=== PATIENT | female | born 1960 | race Caucasian/White ===

== ENCOUNTER 2017-04-06 14:23 | Inpatient (IN) | payer MEDICARE ==
[~2017-04-06] VITALS: Ht 160 cm; Wt 108.9 kg
[2017-04-06] MEDS ORDERED: ASPIRIN ENTERIC COATED 325 MG TABLET.DR. PO ONE (14:45)
[2017-04-06 14:57] LABS: BASO # 0.1 x10^3/uL (0.0-0.2); BASO % 1 % (0-3); EOS % 3 % (0-3); HEMATOCRIT 45.4 % (36.0-47.0); HEMOGLOBIN 15.4 g/dL (12.0-15.5); LYMPH # 3.2 x10^3/uL (1.0-4.8); LYMPH % 27 % (24-48); MEAN CORPUSCULAR HEMOGLOBIN 30 pg (25-35); MEAN CORPUSCULAR HGB CONC 34 g/dL (31-37); MEAN CORPUSCULAR VOLUME 87 fL (79-100); MONO % 4 % (0-9); NEUT % 66 % (31-73); PLATELET COUNT 292 x10^3/uL (140-400); RED CELL DISTRIBUTION WIDTH 14.1 % (11.5-14.5); WHITE BLOOD COUNT 11.9 x10^3/uL (4.0-11.0)
[2017-04-06] MEDS: NITROGLYCERIN SUBLINGUAL 0.4 MG BOTTLE OF 25. SL PRN ×3 (15:01→15:15)
[2017-04-06 15:06] LABS: PROTHROMBIN TIME PATIENT 12.9 SEC (11.7-14.0)
--- NOTE | 2017-04-06 15:11 | RAD ---
Portable chest, 04/06/2017: History: Chest pain The heart size and pulmonary vascularity are normal. No pulmonary infiltrates are seen. There is no evidence of pleural fluid. Scattered spurs are present in the spine. IMPRESSION: No acute cardiopulmonary abnormality is detected.
[2017-04-06 15:13] LABS: BILIRUBIN,URINE NEGATIVE (NEG); GLUCOSE,URINE NEGATIVE (NEG); NITRITE,URINE NEGATIVE (NEG); PROTEIN,URINE NEGATIVE (NEG-TRACE); UROBILINOGEN,URINE 0.2 mg/dL (0.2 mg/dL)
[2017-04-06] MEDS ORDERED: fentaNYL PF VIAL 100 MCG/2 ML VIAL IV ONE (15:15)
--- NOTE | 2017-04-06 15:16 | EKG ---
[facility] [address] [place] [address] Test Date: 2017-04-06 Test Time: 14:30:57 Pat Name: DANII NUR Department: Room: Gender: F Freight Dispatcher: : 1960 Requested By: GARY SLAUGHTER Order Number: [id number] Reading MD: Eyal Cuba Measurements Intervals [place] Rate: 89 P: -32 AL: 180 QRS: 66 QRSD: 76 T: 75 QT: 350 QTc: 427 Interpretive Statements SINUS RHYTHM Electronically Signed On 04-27-2017 16:42:12 CDT by Eyal Cuba
[2017-04-06 15:18] LABS: CALCIUM 9.9 mg/dL (8.5-10.1); CREATININE 0.7 mg/dL (0.6-1.0); GFR 86.9; POTASSIUM 4.6 mmol/L (3.5-5.1)
[2017-04-06 15:18] LABS: BARBITURATES NEG (NEG); BENZODIAZEPINES NEG (NEG); CANNABINOIDS NEG (NEG); COCAINE NEG (NEG); METHADONE NEG (NEG); OPIATES POS (NEG); PHENCYCLIDINE NEG (NEG)
[2017-04-06 15:24] LABS: ALBUMIN 4.2 g/dL (3.4-5.0); ALBUMIN/GLOBULIN RATIO 0.9 (1.0-1.7); TOTAL BILIRUBIN 0.6 mg/dL (0.2-1.0); TOTAL PROTEIN 9.1 g/dL (6.4-8.2)
--- NOTE | 2017-04-06 15:24 | PHYS DOC ---
Past Medical History Past Medical History: Anxiety, Asthma, Bronchitis, Diabetes-Type II, Fibromyalgia Past Surgical History: Cholecystectomy, , Hysterectomy Additional Past Surgical Histo: heart cath 15 yrs ago, hernia repair. Alcohol Use: Occasionally Drug Use: None Adult General Chief Complaint Chief Complaint: CHEST PAIN HPI HPI Patient is a 57 year old female presenting to the emergency department for evaluation of chest pain that has been going on for the past 3 days but is worse today. She says it feels as if there is a pressure in the left clavicle and shoulder area with radiation towards the jaw. She was supposed to go to the dentist today and took a Xanax and now she is somewhat sedated with slurred speech but says that she is having severe pain. Says that she has nausea with no vomiting diaphoresis or shortness of breath with the pain. She says that she had a heart catheterization 15 years ago but no cardiac risk stratification since that time. 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 Patient says that she has high cholesterol but has never been diagnosed with hypertension but her blood pressure is quite elevated today. She is nontoxic-appearing in no obvious distress. Review of Systems Review of Systems Constitutional: Denies fever or chills [] Eyes: Denies change in visual acuity, redness, or eye pain [] HENT: Denies nasal congestion or sore throat [] Respiratory: Denies cough or shortness of breath [] Cardiovascular: + CP GI: Denies abdominal pain. + nausea. No vomiting, bloody stools or diarrhea [] : Denies dysuria or hematuria [] Musculoskeletal: Denies back pain or joint pain [] Integument: Denies rash or skin lesions [] Neurologic: Denies headache, focal weakness or sensory changes [] Current Medications Current Medications Current Medications Medications (Trade) Dose Ordered Sig/Hanane Start Time Stop Time Status Last Admin Dose Admin Aspirin (Ecotrin) 325 mg 1X ONCE 04/06/17 14:45 04/06/17 14:57 DC 04/06/17 15:02 325 MG Fentanyl Citrate (Fentanyl 2ml Vial) 75 mcg 1X ONCE 04/06/17 15:15 04/06/17 15:28 DC 04/06/17 15:37 75 MCG Nitroglycerin (Nitrostat) 0.4 mg PRN Q5MIN PRN 04/06/17 14:45 04/06/17 15:15 0.4 MG Allergies Allergies Allergies Coded Allergies Type Severity Reaction Last Updated Verified morphine Adverse Reaction Unknown pressure from toes up 04/06/17 Yes Physical Exam Physical Exam Constitutional: Well developed, well nourished, no acute distress, non-toxic appearance. [] HENT: Normocephalic, atraumatic, bilateral external ears normal, oropharynx moist, no oral exudates, nose normal. [] Eyes: PERRLA, EOMI, conjunctiva normal, no discharge. [] Neck: Normal range of motion, no tenderness, supple, no stridor. [] Cardiovascular:Heart rate regular rhythm, no murmur [] Lungs & Thorax: Bilateral breath sounds clear to auscultation [] Abdomen: Bowel sounds normal, soft, no tenderness, no masses, no pulsatile masses. [] Skin: Warm, dry, no erythema, no rash. [] Back: No tenderness, no CVA tenderness. [] Extremities: No tenderness, no cyanosis, no clubbing, ROM intact, no edema. [] Neurologic: Alert and oriented X 3, normal motor function, normal sensory function, no focal deficits noted. [] Psychologic: Affect normal, judgement normal, mood normal. [] Current Patient Data Vital Signs Vital Signs Date Time Temp Pulse Resp B/P (MAP) Pulse Ox O2 Delivery O2 Flow Rate FiO2 04/06/17 15:15 87 176/94 04/06/17 14:30 98.4 22 98 Room Air 98.4 Lab Values Laboratory Tests Test 04/06/17 14:35 04/06/17 15:00 White Blood Count 11.9 x10^3/uL (4.0-11.0) H Red Blood Count 5.20 x10^6/uL (3.50-5.40) Hemoglobin 15.4 g/dL (12.0-15.5) Hematocrit 45.4 % (36.0-47.0) Mean Corpuscular Volume 87 fL (79-100) Mean Corpuscular Hemoglobin 30 pg (25-35) Mean Corpuscular Hemoglobin Concent 34 g/dL (31-37) Red Cell Distribution Width 14.1 % (11.5-14.5) Platelet Count 292 x10^3/uL (140-400) Neutrophils (%) (Auto) 66 % (31-73) Lymphocytes (%) (Auto) 27 % (24-48) Monocytes (%) (Auto) 4 % (0-9) Eosinophils (%) (Auto) 3 % (0-3) Basophils (%) (Auto) 1 % (0-3) Neutrophils # (Auto) 7.8 x10^3uL (1.8-7.7) H Lymphocytes # (Auto) 3.2 x10^3/uL (1.0-4.8) Monocytes # (Auto) 0.5 x10^3/uL (0.0-1.1) Eosinophils # (Auto) 0.3 x10^3/uL (0.0-0.7) Basophils # (Auto) 0.1 x10^3/uL (0.0-0.2) Prothrombin Time 12.9 SEC (11.7-14.0) Prothrombin Time INR 1.0 (0.8-1.1) PTT 30 SEC (24-38) Sodium Level 139 mmol/L (136-145) Potassium Level 4.6 mmol/L (3.5-5.1) Chloride Level 103 mmol/L (98-107) Carbon Dioxide Level 32 mmol/L (21-32) Anion Gap 4 (6-14) L Blood Urea Nitrogen 13 mg/dL (7-20) Creatinine 0.7 mg/dL (0.6-1.0) Estimated GFR (Cockcroft-Gault) 86.9 BUN/Creatinine Ratio 19 (6-20) Glucose Level 87 mg/dL (70-99) Calcium Level 9.9 mg/dL (8.5-10.1) Magnesium Level 2.0 mg/dL (1.8-2.4) Total Bilirubin 0.6 mg/dL (0.2-1.0) Aspartate Amino Transferase (AST) 29 U/L (15-37) Alanine Aminotransferase (ALT) 43 U/L (14-59) Alkaline Phosphatase 88 U/L (46-116) Troponin I Quantitative < 0.017 ng/mL (0.000-0.055) EK-Asx-T-Type Natriuretic Peptide 86 pg/mL (0-124) Total Protein 9.1 g/dL (6.4-8.2) H Albumin 4.2 g/dL (3.4-5.0) Albumin/Globulin Ratio 0.9 (1.0-1.7) L Lipase 219 U/L (73-393) Ethyl Alcohol Level < 10 mg/dL (0-10) Urine Collection Type Unknown Urine Color Yellow Urine Clarity Clear Urine pH 6.0 Urine Specific [place] 1.010 Urine Protein Negative mg/dL (NEG-TRACE) Urine Glucose (UA) Negative mg/dL (NEG) Urine Ketones (Stick) Negative mg/dL (NEG) Urine Blood Negative (NEG) Urine Nitrite Negative (NEG) Urine Bilirubin Negative (NEG) Urine Urobilinogen Dipstick 0.2 mg/dL (0.2 mg/dL) Urine Leukocyte Esterase Negative (NEG) Urine RBC 0 /HPF (0-2) Urine WBC Rare /HPF (0-4) Urine Squamous Epithelial Cells Mod /LPF Urine Bacteria Moderate /HPF (0-FEW) Urine Mucus Slight /LPF Urine Opiates Screen Pos (NEG) Urine Methadone Screen Neg (NEG) Urine Barbiturates Neg (NEG) Urine Phencyclidine Screen Neg (NEG) Urine Amphetamine/Methamphetamine Neg (NEG) Urine Benzodiazepines Screen Neg (NEG) Urine Cocaine Screen Neg (NEG) Urine Cannabinoids Screen Neg (NEG) Urine Ethyl Alcohol Neg (NEG) Laboratory Tests 04/06/17 14:35 Laboratory Tests 04/06/17 14:35 EKG EKG Sinus rhythm at 89 beats per minutes with normal axis no obvious ST elevation or depression with normal T waves. Radiology/Procedures Radiology/Procedures Portable chest, 04/06/2017: History: Chest pain The heart size and pulmonary vascularity are normal. No pulmonary infiltrates are seen. There is no evidence of pleural fluid. Scattered spurs are present in the spine. IMPRESSION: No acute cardiopulmonary abnormality is detected. DICTATED and SIGNED BY: MARIAH MCDONALD MD DATE: 04/06/17 1508 Course & Med Decision Making Course & Med Decision Making Patient's pain resolved after 3 nitroglycerin and her blood pressure improved to the 140s systolic range. This is concerning for cardiac etiology given she has risk factors and some classic components to her symptoms. She will be admitted for further observation and treatment. Dragon Disclaimer Dragon Disclaimer This electronic medical record was generated, in whole or in part, using a voice recognition dictation system. Departure Departure Impression: Primary Impression: Chest pain at rest Additional Impression: Hypertensive urgency Disposition: 09 ADMITTED INPATIENT Admitting Physician: Wale Lao Condition: STABLE Referrals: MEG MARTINEZ DO (PCP) Problem Qualifiers GARY SLAUGHTER DO Apr 06, 2017 15:24
[2017-04-06 15:26] LABS: BACTERIA,URINE MODERATE /HPF (0-FEW); RBC,URINE 0 /HPF (0-2); SQUAMOUS EPITHELIAL CELL,UR MOD /LPF; WBC,URINE RARE /HPF (0-4)
[2017-04-06] MEDS ORDERED: ONDANSETRON PF 4 MG/2 ML VIAL. IV PRN (16:15)
[2017-04-06] MEDS: fentaNYL PF VIAL 100 MCG/2 ML VIAL IV PRN (17:23)
[2017-04-06 18:42] VITALS: BP 189/97
--- NOTE | 2017-04-06 18:45 | HP ---
ADMIT DATE: 04/06/2017 CHIEF COMPLAINT: Chest pain. HISTORY OF PRESENT ILLNESS: The patient is a pleasant 57-year-old female who presents with chest pain. She has diabetes. She has high blood pressure. She smokes. It is in her family as well. I have discussed the case with ER physician. We are going to admit the patient and consult Cardiology. The patient describes her pain is burning. It is rated at 10/10. PAST MEDICAL HISTORY: Anxiety, fibromyalgia, asthma, bronchitis, diabetes, overweight, , hysterectomy, cholecystectomy, cardiac cath 15 years ago, hernia repair. ALLERGIES: MORPHINE. FAMILY HISTORY: Coronary artery disease. SOCIAL HISTORY: She smokes. She drinks socially. No drugs. MEDICATIONS: Reviewed. REVIEW OF SYSTEMS: GENERAL: No history of weight change, weakness or fevers. SKIN: No bruising, hair changes or rashes. EYES: No blurred, double or loss of vision. NOSE AND THROAT: No history of nosebleeds, hoarseness or sore throat. HEART: She complains of chest pain. LUNGS: Denies cough, hemoptysis, wheezing or shortness of breath. GASTROINTESTINAL: Denies changes in appetite, nausea, vomiting, diarrhea or constipation. GENITOURINARY: No history of frequency, urgency, hesitancy or nocturia. NEUROLOGIC: Denies history of numbness, tingling, tremor or weakness. PSYCHIATRIC: No history of panic, anxiety or depression. ENDOCRINE: No history of heat or cold intolerance, polyuria or polydipsia. EXTREMITIES: Denies muscle weakness, joint pain, pain on walking or stiffness. PHYSICAL EXAMINATION: VITAL SIGNS: Temperature afebrile, pulse 90, respirations 18, blood pressure 136/75. GASTROINTESTINAL: She is alert, cooperative. Her is present. HEART: Normal S1, S2. LUNGS: Clear. ABDOMEN: Soft, obese. EXTREMITIES: 1+ edema. SKIN: No rashes. PSYCHIATRIC: She is anxious. VASCULAR: Good capillary refill. ENDOCRINE: No thyromegaly. LYMPHATICS: No cervical nodes. HEMATOPOIETIC: No bruising. LABORATORY DATA: Electrolytes are normal. Troponin is 0. Hematology: White count 12, hemoglobin 15, platelets 292. INR is 1. Drug screen positive for opiates. Urinalysis negative. ASSESSMENT AND PLAN: Chest pain, rule out coronary disease. The patient has been admitted. We will check serial enzymes, serial EKGs. Consult Cardiology, cardiac monitoring. Daily aspirin. Continue home medicines. J CARLOS GUALLPA DO DR: JOSEPHINE/uziel JOB#: [id number] / [id number]
[2017-04-06 19:15] VITALS: BP 172/94
[2017-04-06] MEDS ORDERED: CLON1TAB3 PO (19:45)
[2017-04-06] MEDS ORDERED: GABA-587 PO (19:45)
[2017-04-06] MEDS ORDERED: PROAIR HFA8.5 GM INH (19:45)
[2017-04-06] MEDS ORDERED: METF500T4 PO (19:45)
[2017-04-06] MEDS ORDERED: PARO30TA3 PO (19:45)
[2017-04-06] MEDS ORDERED: BENZ200C47 PO (19:45)
[2017-04-06] MEDS ORDERED: HYDR-2762 PO (19:45)
[2017-04-06] MEDS ORDERED: GABA-586 PO (19:45)
[2017-04-06] MEDS ORDERED: ALPR0.5T6 PO (19:45)
[2017-04-06] MEDS ORDERED: NON FORMULARY ITEM (Albuterol Sulfate (Proair Hfa Inhaler) 1 PUFF) INH PRN (20:00)
[2017-04-06] MEDS ORDERED: ALBUTEROL SULFATE 2.5 MG/3 ML NEBU. NEB PRN (20:00)
[2017-04-06] MEDS ORDERED: ALPRAZolam 0.5 MG TABLET PO PRN (20:00)
[2017-04-06] MEDS: NICOTINE 21MG PATCH. TD PRN (20:04)
[2017-04-06] MEDS: HYDROcodone/APAP 7.5/325MG 1 TAB TABLET PO PRN (20:04)
[2017-04-06] MEDS: BENZONATATE 100 MG CAPSULE. PO SCH (20:58)
[2017-04-06] MEDS: PARoxetine 10 MG TABLET PO SCH (20:59)
[2017-04-06] MEDS: GABAPENTIN 400 MG CAPSULE. PO SCH (20:59)
[2017-04-06] MEDS: clonazePAM 1 MG TABLET PO PRN (21:04)
[2017-04-06 23:10] VITALS: BP 179/87
[2017-04-06] MEDS ORDERED: amLODIPine BESYLATE 5 MG TABLET PO ONE (23:45)
[2017-04-07] VITALS (7 sets, daily range): BP systolic 135–206; BP diastolic 70–101
[2017-04-07] MEDS ORDERED: LABETALOL 20 MG/4 ML DISP.SYRIN. IVP PRN (04:15)
[2017-04-07] MEDS: HYDROcodone/APAP 7.5/325MG 1 TAB TABLET PO PRN ×2 (05:16→18:26)
[2017-04-07 06:15] LABS: CALCIUM 9.6 mg/dL (8.5-10.1); CREATININE 0.5 mg/dL (0.6-1.0); GFR 128.1; POTASSIUM 4.6 mmol/L (3.5-5.1)
[2017-04-07 06:17] LABS: BASO # 0.1 x10^3/uL (0.0-0.2); BASO % 1 % (0-3); EOS % 3 % (0-3); HEMATOCRIT 44.6 % (36.0-47.0); HEMOGLOBIN 14.8 g/dL (12.0-15.5); LYMPH # 2.9 x10^3/uL (1.0-4.8); LYMPH % 26 % (24-48); MEAN CORPUSCULAR HEMOGLOBIN 29 pg (25-35); MEAN CORPUSCULAR HGB CONC 33 g/dL (31-37); MEAN CORPUSCULAR VOLUME 87 fL (79-100); MONO % 4 % (0-9); NEUT % 68 % (31-73); PLATELET COUNT 290 x10^3/uL (140-400); RED BLOOD COUNT 5.11 x10^6/uL (3.50-5.40); RED CELL DISTRIBUTION WIDTH 14.1 % (11.5-14.5); WHITE BLOOD COUNT 11.5 x10^3/uL (4.0-11.0)
[2017-04-07] MEDS ORDERED: ACETAMINOPHEN 500 MG TABLET PO PRN (08:30)
[2017-04-07] MEDS: GABAPENTIN 300 MG CAPSULE. PO SCH (08:36)
[2017-04-07] MEDS ORDERED: ONDANSETRON PF 4 MG/2 ML VIAL. IV PRN (08:45)
[2017-04-07] MEDS ORDERED: amLODIPine BESYLATE 5 MG TABLET PO SCH (09:00)
--- NOTE | 2017-04-07 09:37 | PDOC2 ---
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 Pt was recently seen by her PCP noted with URI and was provided with symptom controlling meds such as mucinex and was also given rocephin at that time. At that time her SBP was 178. She went to the dentist yesterday to get her left lower wisdom tooth out due to impaction but no absccess and her BP was 203/119 and this was cancelled and was advised to see her PCP. She then decided to go to ED since she figured her PCP wont be abler to do something. She typically walks her horse with up and down terrain almost everyday but Tuesday, she did this only partially since she felt weak, slightly SOA, flushed, and clammy. Last night for the first time she started having chest pain left and right chest and also left shoulder. Her left shoulder discomfort is reproducible with palpation and she blames her left jaw pain from her wisdom tooth. This AM positive for nausea. She had LHC 15 yrs ago and this was normal accdg to her. She is positive for DM2, no HLP, and newly diagnosed with HTN but no medication has been started. It is unclear if she follows DM diet but she has not lost any weight and also continue to smoke tobacco. Denies CAD, VTE, falls or any recent injury. PAST MEDICAL HISTORY Cardiovascular: HTN Pulmonary: Other (ALEE) CENTRAL NERVOUS SYSTEM: Periperal neuropathy GI: GERD Heme/Onc: No pertinent hx Hepatobiliary: No pertinent hx Psych: Anxiety, Depression Musculoskeletal: low back pain, Osteoarthritis, Other (obesity) Rheumatologic: Fibromyalgia Infectious disease: No pertinent hx ENT: Allergic Rhinitis Renal/: UTI Endocrine: Diabetes (2) Dermatology: Other (dermatitis) PAST SURGICAL HISTORY Past Surgical History: Cholecystectomy, , Hernia Repair, Hysterectomy , Other (LHC 15 yrs ago) FAMILY HISTORY Family History: Coronary Artery Disease (father ) SOCIAL HISTORY Smoke: <1 pack per day (>30 yrs) ALCOHOL: occassional Drugs: None Lives: with Family CURRENT MEDICATIONS CURRENT MEDICATIONS Current Medications Medications (Trade) Dose Ordered Sig/Hanane Route PRN Reason Start Time Stop Time Status Last Admin Dose Admin Aspirin (Ecotrin) 325 mg 1X ONCE PO 04/06/17 14:45 04/06/17 14:57 DC 04/06/17 15:02 Nitroglycerin (Nitrostat) 0.4 mg PRN Q5MIN PRN SL CHEST PAIN 04/06/17 14:45 04/06/17 15:15 Fentanyl Citrate (Fentanyl 2ml Vial) 75 mcg 1X ONCE IV 04/06/17 15:15 04/06/17 15:28 DC 04/06/17 15:37 Fentanyl Citrate (Fentanyl 2ml Vial) 50 mcg PRN Q2HR PRN IV PAIN 04/06/17 16:15 04/07/17 16:14 04/06/17 17:23 Nicotine (Nicoderm Cq 21mg) 1 patch PRN DAILY PRN TD SMOKING CESSATION 04/06/17 19:45 04/06/17 20:04 Clonazepam (KlonoPIN) 1 mg TID PRN PRN PO ANXIETY / AGITATION 04/06/17 20:00 04/06/17 21:04 Acetaminophen/ Hydrocodone Bitart (Lortab 7.5/325) 1 tab TID PRN PRN PO PAIN 04/06/17 20:00 04/07/17 05:16 Benzonatate (Tessalon Perle) 200 mg QHS PO 04/06/17 21:00 04/06/17 20:58 Gabapentin (Neurontin) 300 mg DAILY PO 04/07/17 09:00 04/07/17 08:36 Gabapentin (Neurontin) 1,200 mg QHS PO 04/06/17 21:00 04/06/17 20:59 Paroxetine HCl (Paxil) 30 mg QHS PO 04/06/17 21:00 04/06/17 20:59 Albuterol Sulfate (Ventolin Neb Soln) 2.5 mg PRN Q6HRS PRN NEB SHORTNESS OF BREATH 04/06/17 20:00 04/07/17 07:53 Amlodipine Besylate (Norvasc) 5 mg DAILY PO 04/07/17 09:00 04/07/17 08:36 Amlodipine Besylate (Norvasc) 5 mg 1X ONCE PO 04/06/17 23:45 04/06/17 23:46 DC 04/06/17 23:47 Labetalol HCl (Normodyne) 20 mg PRN Q6HRS PRN IVP HYPERTENSION, SEE COMMENTS 04/07/17 04:15 04/07/17 05:16 Ondansetron HCl (Zofran) 4 mg PRN Q6HRS PRN IV NAUSEA/VOMITING 04/07/17 08:45 04/08/17 08:44 04/07/17 08:47 Acetaminophen (Tylenol) 500 mg PRN Q6HRS PRN PO MILD PAIN / TEMP 04/07/17 08:30 04/07/17 08:38 ALLERGIES ALLERGIES: Coded Allergies: morphine (Verified Adverse Reaction, Unknown, pressure from toes up, ) ROS Review of System 14 point ROS evaluated with pertinent positives noted per HPI PHYSICAL EXAM General: Alert, Oriented X3, Cooperative, No acute distress HEENT: Atraumatic, Mucous membr. moist/pink Lungs: Clear to auscultation, Normal air movement Heart: Regular rate, Normal S1, Normal S2, Other (2/6 systolic murmur to LLS border) Abdomen: Soft, No tenderness Skin: No breakdown, Other (allergic dermatitis to bilateral forearm) Neuro: Normal speech, Sensation intact Psych/Mental Status: Mental status NL, Mood NL MUSCULOSKELETAL: Osteoarthritic changes both hands VITALS VITALS Vital Signs Date Time Temp Pulse Resp B/P (MAP) Pulse Ox O2 Delivery O2 Flow Rate FiO2 04/07/17 08:43 98.6 73 20 157/84 (108) 93 Room Air 98.6 LABS Lab: Laboratory Tests Test 04/06/17 14:35 04/06/17 15:00 04/06/17 21:50 04/07/17 05:20 White Blood Count 11.9 x10^3/uL (4.0-11.0) 11.5 x10^3/uL (4.0-11.0) Red Blood Count 5.20 x10^6/uL (3.50-5.40) 5.11 x10^6/uL (3.50-5.40) Hemoglobin 15.4 g/dL (12.0-15.5) 14.8 g/dL (12.0-15.5) Hematocrit 45.4 % (36.0-47.0) 44.6 % (36.0-47.0) Mean Corpuscular Volume 87 fL (79-100) 87 fL (79-100) Mean Corpuscular Hemoglobin 30 pg (25-35) 29 pg (25-35) Mean Corpuscular Hemoglobin Concent 34 g/dL (31-37) 33 g/dL (31-37) Red Cell Distribution Width 14.1 % (11.5-14.5) 14.1 % (11.5-14.5) Platelet Count 292 x10^3/uL (140-400) 290 x10^3/uL (140-400) Neutrophils (%) (Auto) 66 % (31-73) 68 % (31-73) Lymphocytes (%) (Auto) 27 % (24-48) 26 % (24-48) Monocytes (%) (Auto) 4 % (0-9) 4 % (0-9) Eosinophils (%) (Auto) 3 % (0-3) 3 % (0-3) Basophils (%) (Auto) 1 % (0-3) 1 % (0-3) Neutrophils # (Auto) 7.8 x10^3uL (1.8-7.7) 7.8 x10^3uL (1.8-7.7) Lymphocytes # (Auto) 3.2 x10^3/uL (1.0-4.8) 2.9 x10^3/uL (1.0-4.8) Monocytes # (Auto) 0.5 x10^3/uL (0.0-1.1) 0.4 x10^3/uL (0.0-1.1) Eosinophils # (Auto) 0.3 x10^3/uL (0.0-0.7) 0.3 x10^3/uL (0.0-0.7) Basophils # (Auto) 0.1 x10^3/uL (0.0-0.2) 0.1 x10^3/uL (0.0-0.2) Prothrombin Time 12.9 SEC (11.7-14.0) Prothromb Time International Ratio 1.0 (0.8-1.1) Activated Partial Thromboplast Time 30 SEC (24-38) Sodium Level 139 mmol/L (136-145) 138 mmol/L (136-145) Potassium Level 4.6 mmol/L (3.5-5.1) 4.6 mmol/L (3.5-5.1) Chloride Level 103 mmol/L (98-107) 101 mmol/L (98-107) Carbon Dioxide Level 32 mmol/L (21-32) 31 mmol/L (21-32) Anion Gap 4 (6-14) 6 (6-14) Blood Urea Nitrogen 13 mg/dL (7-20) 11 mg/dL (7-20) Creatinine 0.7 mg/dL (0.6-1.0) 0.5 mg/dL (0.6-1.0) Estimated GFR (Cockcroft-Gault) 86.9 128.1 BUN/Creatinine Ratio 19 (6-20) Glucose Level 87 mg/dL (70-99) 116 mg/dL (70-99) Calcium Level 9.9 mg/dL (8.5-10.1) 9.6 mg/dL (8.5-10.1) Magnesium Level 2.0 mg/dL (1.8-2.4) Total Bilirubin 0.6 mg/dL (0.2-1.0) Aspartate Amino Transf (AST/SGOT) 29 U/L (15-37) Alanine Aminotransferase (ALT/SGPT) 43 U/L (14-59) Alkaline Phosphatase 88 U/L (46-116) Troponin I Quantitative < 0.017 ng/mL (0.000-0.055) < 0.017 ng/mL (0.000-0.055) < 0.017 ng/mL (0.000-0.055) CL-Svv-C-Type Natriuretic Peptide 86 pg/mL (0-124) Total Protein 9.1 g/dL (6.4-8.2) Albumin 4.2 g/dL (3.4-5.0) Albumin/Globulin Ratio 0.9 (1.0-1.7) Lipase 219 U/L (73-393) Ethyl Alcohol Level < 10 mg/dL (0-10) Urine Collection Type Unknown Urine Color Yellow Urine Clarity Clear Urine pH 6.0 Urine Specific [place] 1.010 Urine Protein Negative mg/dL (NEG-TRACE) Urine Glucose (UA) Negative mg/dL (NEG) Urine Ketones (Stick) Negative mg/dL (NEG) Urine Blood Negative (NEG) Urine Nitrite Negative (NEG) Urine Bilirubin Negative (NEG) Urine Urobilinogen Dipstick 0.2 mg/dL (0.2 mg/dL) Urine Leukocyte Esterase Negative (NEG) Urine RBC 0 /HPF (0-2) Urine WBC Rare /HPF (0-4) Urine Squamous Epithelial Cells Mod /LPF Urine Bacteria Moderate /HPF (0-FEW) Urine Mucus Slight /LPF Urine Opiates Screen Pos (NEG) Urine Methadone Screen Neg (NEG) Urine Barbiturates Neg (NEG) Urine Phencyclidine Screen Neg (NEG) Urine Amphetamine/Methamphetamine Neg (NEG) Urine Benzodiazepines Screen Neg (NEG) Urine Cocaine Screen Neg (NEG) Urine Cannabinoids Screen Neg (NEG) Urine Ethyl Alcohol Neg (NEG) ASSESSMENT/PLAN ASSESSMENT/PLAN 1. Chest pain: mixed features 2. Accelerated HTN: New. was noted initially at PCPs office on 03/29/2017 at 178 /87. was not placed on regimen at that time 3. DM2: last A1C 7.0 4. Morbid obesity: BMI 42 5. Tobaccoism 6. Hx of fibromyalgia/anxiety/depression with chronic use of opioids 7. ALEE: CPAP compliant Recommendations 1. TTEand MPI today 2. TSH, lipid panel 3. Start on losartan/HCTZ. Start ECASA. 4. Smoking cessation. Lifestyle modifications. 5. Dietitian, encouraged wt loss. Problems: ZHEN GALEANA MD 04/07/17 1143: CARDIAC CONSULT ALLERGIES ALLERGIES: Coded Allergies: morphine (Verified Adverse Reaction, Unknown, pressure from toes up, ) ASSESSMENT/PLAN ASSESSMENT/PLAN Pt. seen and examined. Agree with above DATABASE SPECIALIST note. Await results from stress testing. Atypical chest pain with risk factors, appropriate for non-invasive evaluation. Problems: HECTOR CONN APRN Apr 07, 2017 09:37 ZHEN GALEANA MD Apr 07, 2017 11:43
[2017-04-07] MEDS ORDERED: REGADENOSON 0.4 MG/5 ML DISP.SYRIN. IV ONE (09:45)
[2017-04-07] MEDS: ASPIRIN ENTERIC COATED 81 MG TABLET.DR. PO SCH (11:11)
[2017-04-07] MEDS: hydroCHLOROthiazide 25 MG TABLET PO SCH (11:12)
[2017-04-07] MEDS: LOSARTAN POTASSIUM 50 MG TABLET. PO SCH (11:12)
[2017-04-07] MEDS: fentaNYL PF VIAL 100 MCG/2 ML VIAL IV PRN (11:21)
--- NOTE | 2017-04-07 11:27 | PDOC ---
PROGRESS NOTES Chief Complaint Chief Complaint 1. CP 2. HTN, dyslipidemia, fibromyalgia - chronic stable 3. Obesity BMI 42 4. DM 2 on OHA History of Present Illness History of Present Illness Headaches now Trying to eat after first part MPI VS ok LAbs ok PLAn: Toradol 30 IV x 1 now Then prn ibuprofen SSi high dose - metformin on hold since [employer] and mPI Dw RN Aditi Vitals Vitals Vital Signs Date Time Temp Pulse Resp B/P (MAP) Pulse Ox O2 Delivery O2 Flow Rate FiO2 04/07/17 11:21 98.4 79 21 177/95 (122) 94 Room Air 98.4 Physical Exam General: Alert, Oriented X3, Cooperative, No acute distress Heart: Regular rate, Normal S1, Normal S2, Other (2/6 systolic murmur to LLS border) Abdomen: Soft, No tenderness Skin: No breakdown, Other (allergic dermatitis to bilateral forearm) Labs LABS Laboratory Tests Test 04/06/17 14:35 04/06/17 15:00 04/06/17 21:50 04/07/17 05:20 White Blood Count 11.9 x10^3/uL (4.0-11.0) 11.5 x10^3/uL (4.0-11.0) Red Blood Count 5.20 x10^6/uL (3.50-5.40) 5.11 x10^6/uL (3.50-5.40) Hemoglobin 15.4 g/dL (12.0-15.5) 14.8 g/dL (12.0-15.5) Hematocrit 45.4 % (36.0-47.0) 44.6 % (36.0-47.0) Mean Corpuscular Volume 87 fL (79-100) 87 fL (79-100) Mean Corpuscular Hemoglobin 30 pg (25-35) 29 pg (25-35) Mean Corpuscular Hemoglobin Concent 34 g/dL (31-37) 33 g/dL (31-37) Red Cell Distribution Width 14.1 % (11.5-14.5) 14.1 % (11.5-14.5) Platelet Count 292 x10^3/uL (140-400) 290 x10^3/uL (140-400) Neutrophils (%) (Auto) 66 % (31-73) 68 % (31-73) Lymphocytes (%) (Auto) 27 % (24-48) 26 % (24-48) Monocytes (%) (Auto) 4 % (0-9) 4 % (0-9) Eosinophils (%) (Auto) 3 % (0-3) 3 % (0-3) Basophils (%) (Auto) 1 % (0-3) 1 % (0-3) Neutrophils # (Auto) 7.8 x10^3uL (1.8-7.7) 7.8 x10^3uL (1.8-7.7) Lymphocytes # (Auto) 3.2 x10^3/uL (1.0-4.8) 2.9 x10^3/uL (1.0-4.8) Monocytes # (Auto) 0.5 x10^3/uL (0.0-1.1) 0.4 x10^3/uL (0.0-1.1) Eosinophils # (Auto) 0.3 x10^3/uL (0.0-0.7) 0.3 x10^3/uL (0.0-0.7) Basophils # (Auto) 0.1 x10^3/uL (0.0-0.2) 0.1 x10^3/uL (0.0-0.2) Prothrombin Time 12.9 SEC (11.7-14.0) Prothromb Time International Ratio 1.0 (0.8-1.1) Activated Partial Thromboplast Time 30 SEC (24-38) Sodium Level 139 mmol/L (136-145) 138 mmol/L (136-145) Potassium Level 4.6 mmol/L (3.5-5.1) 4.6 mmol/L (3.5-5.1) Chloride Level 103 mmol/L (98-107) 101 mmol/L (98-107) Carbon Dioxide Level 32 mmol/L (21-32) 31 mmol/L (21-32) Anion Gap 4 (6-14) 6 (6-14) Blood Urea Nitrogen 13 mg/dL (7-20) 11 mg/dL (7-20) Creatinine 0.7 mg/dL (0.6-1.0) 0.5 mg/dL (0.6-1.0) Estimated GFR (Cockcroft-Gault) 86.9 128.1 BUN/Creatinine Ratio 19 (6-20) Glucose Level 87 mg/dL (70-99) 116 mg/dL (70-99) Calcium Level 9.9 mg/dL (8.5-10.1) 9.6 mg/dL (8.5-10.1) Magnesium Level 2.0 mg/dL (1.8-2.4) Total Bilirubin 0.6 mg/dL (0.2-1.0) Aspartate Amino Transf (AST/SGOT) 29 U/L (15-37) Alanine Aminotransferase (ALT/SGPT) 43 U/L (14-59) Alkaline Phosphatase 88 U/L (46-116) Troponin I Quantitative < 0.017 ng/mL (0.000-0.055) < 0.017 ng/mL (0.000-0.055) < 0.017 ng/mL (0.000-0.055) QR-Zet-G-Type Natriuretic Peptide 86 pg/mL (0-124) Total Protein 9.1 g/dL (6.4-8.2) Albumin 4.2 g/dL (3.4-5.0) Albumin/Globulin Ratio 0.9 (1.0-1.7) Lipase 219 U/L (73-393) Ethyl Alcohol Level < 10 mg/dL (0-10) Urine Collection Type Unknown Urine Color Yellow Urine Clarity Clear Urine pH 6.0 Urine Specific Luke 1.010 Urine Protein Negative mg/dL (NEG-TRACE) Urine Glucose (UA) Negative mg/dL (NEG) Urine Ketones (Stick) Negative mg/dL (NEG) Urine Blood Negative (NEG) Urine Nitrite Negative (NEG) Urine Bilirubin Negative (NEG) Urine Urobilinogen Dipstick 0.2 mg/dL (0.2 mg/dL) Urine Leukocyte Esterase Negative (NEG) Urine RBC 0 /HPF (0-2) Urine WBC Rare /HPF (0-4) Urine Squamous Epithelial Cells Mod /LPF Urine Bacteria Moderate /HPF (0-FEW) Urine Mucus Slight /LPF Urine Opiates Screen Pos (NEG) Urine Methadone Screen Neg (NEG) Urine Barbiturates Neg (NEG) Urine Phencyclidine Screen Neg (NEG) Urine Amphetamine/Methamphetamine Neg (NEG) Urine Benzodiazepines Screen Neg (NEG) Urine Cocaine Screen Neg (NEG) Urine Cannabinoids Screen Neg (NEG) Urine Ethyl Alcohol Neg (NEG) Review of Systems Review of Systems headaches Assessment and Plan Assessmemt and Plan Problems Medical Problems: (1) Chest pain at rest Status: Acute (2) Hypertensive urgency Status: Acute Problems: Comment Review of Relevant I have reviewed the following items scott (where applicable) has been applied. Labs Laboratory Tests Test 04/06/17 14:35 04/06/17 15:00 04/06/17 21:50 04/07/17 05:20 White Blood Count 11.9 x10^3/uL (4.0-11.0) 11.5 x10^3/uL (4.0-11.0) Red Blood Count 5.20 x10^6/uL (3.50-5.40) 5.11 x10^6/uL (3.50-5.40) Hemoglobin 15.4 g/dL (12.0-15.5) 14.8 g/dL (12.0-15.5) Hematocrit 45.4 % (36.0-47.0) 44.6 % (36.0-47.0) Mean Corpuscular Volume 87 fL (79-100) 87 fL (79-100) Mean Corpuscular Hemoglobin 30 pg (25-35) 29 pg (25-35) Mean Corpuscular Hemoglobin Concent 34 g/dL (31-37) 33 g/dL (31-37) Red Cell Distribution Width 14.1 % (11.5-14.5) 14.1 % (11.5-14.5) Platelet Count 292 x10^3/uL (140-400) 290 x10^3/uL (140-400) Neutrophils (%) (Auto) 66 % (31-73) 68 % (31-73) Lymphocytes (%) (Auto) 27 % (24-48) 26 % (24-48) Monocytes (%) (Auto) 4 % (0-9) 4 % (0-9) Eosinophils (%) (Auto) 3 % (0-3) 3 % (0-3) Basophils (%) (Auto) 1 % (0-3) 1 % (0-3) Neutrophils # (Auto) 7.8 x10^3uL (1.8-7.7) 7.8 x10^3uL (1.8-7.7) Lymphocytes # (Auto) 3.2 x10^3/uL (1.0-4.8) 2.9 x10^3/uL (1.0-4.8) Monocytes # (Auto) 0.5 x10^3/uL (0.0-1.1) 0.4 x10^3/uL (0.0-1.1) Eosinophils # (Auto) 0.3 x10^3/uL (0.0-0.7) 0.3 x10^3/uL (0.0-0.7) Basophils # (Auto) 0.1 x10^3/uL (0.0-0.2) 0.1 x10^3/uL (0.0-0.2) Prothrombin Time 12.9 SEC (11.7-14.0) Prothromb Time International Ratio 1.0 (0.8-1.1) Activated Partial Thromboplast Time 30 SEC (24-38) Sodium Level 139 mmol/L (136-145) 138 mmol/L (136-145) Potassium Level 4.6 mmol/L (3.5-5.1) 4.6 mmol/L (3.5-5.1) Chloride Level 103 mmol/L (98-107) 101 mmol/L (98-107) Carbon Dioxide Level 32 mmol/L (21-32) 31 mmol/L (21-32) Anion Gap 4 (6-14) 6 (6-14) Blood Urea Nitrogen 13 mg/dL (7-20) 11 mg/dL (7-20) Creatinine 0.7 mg/dL (0.6-1.0) 0.5 mg/dL (0.6-1.0) Estimated GFR (Cockcroft-Gault) 86.9 128.1 BUN/Creatinine Ratio 19 (6-20) Glucose Level 87 mg/dL (70-99) 116 mg/dL (70-99) Calcium Level 9.9 mg/dL (8.5-10.1) 9.6 mg/dL (8.5-10.1) Magnesium Level 2.0 mg/dL (1.8-2.4) Total Bilirubin 0.6 mg/dL (0.2-1.0) Aspartate Amino Transf (AST/SGOT) 29 U/L (15-37) Alanine Aminotransferase (ALT/SGPT) 43 U/L (14-59) Alkaline Phosphatase 88 U/L (46-116) Troponin I Quantitative < 0.017 ng/mL (0.000-0.055) < 0.017 ng/mL (0.000-0.055) < 0.017 ng/mL (0.000-0.055) ZL-Vcp-G-Type Natriuretic Peptide 86 pg/mL (0-124) Total Protein 9.1 g/dL (6.4-8.2) Albumin 4.2 g/dL (3.4-5.0) Albumin/Globulin Ratio 0.9 (1.0-1.7) Lipase 219 U/L (73-393) Ethyl Alcohol Level < 10 mg/dL (0-10) Urine Collection Type Unknown Urine Color Yellow Urine Clarity Clear Urine pH 6.0 Urine Specific Luke 1.010 Urine Protein Negative mg/dL (NEG-TRACE) Urine Glucose (UA) Negative mg/dL (NEG) Urine Ketones (Stick) Negative mg/dL (NEG) Urine Blood Negative (NEG) Urine Nitrite Negative (NEG) Urine Bilirubin Negative (NEG) Urine Urobilinogen Dipstick 0.2 mg/dL (0.2 mg/dL) Urine Leukocyte Esterase Negative (NEG) Urine RBC 0 /HPF (0-2) Urine WBC Rare /HPF (0-4) Urine Squamous Epithelial Cells Mod /LPF Urine Bacteria Moderate /HPF (0-FEW) Urine Mucus Slight /LPF Urine Opiates Screen Pos (NEG) Urine Methadone Screen Neg (NEG) Urine Barbiturates Neg (NEG) Urine Phencyclidine Screen Neg (NEG) Urine Amphetamine/Methamphetamine Neg (NEG) Urine Benzodiazepines Screen Neg (NEG) Urine Cocaine Screen Neg (NEG) Urine Cannabinoids Screen Neg (NEG) Urine Ethyl Alcohol Neg (NEG) Laboratory Tests Test 04/06/17 14:35 04/06/17 15:00 04/06/17 21:50 04/07/17 05:20 White Blood Count 11.9 x10^3/uL (4.0-11.0) 11.5 x10^3/uL (4.0-11.0) Red Blood Count 5.20 x10^6/uL (3.50-5.40) 5.11 x10^6/uL (3.50-5.40) Hemoglobin 15.4 g/dL (12.0-15.5) 14.8 g/dL (12.0-15.5) Hematocrit 45.4 % (36.0-47.0) 44.6 % (36.0-47.0) Mean Corpuscular Volume 87 fL (79-100) 87 fL (79-100) Mean Corpuscular Hemoglobin 30 pg (25-35) 29 pg (25-35) Mean Corpuscular Hemoglobin Concent 34 g/dL (31-37) 33 g/dL (31-37) Red Cell Distribution Width 14.1 % (11.5-14.5) 14.1 % (11.5-14.5) Platelet Count 292 x10^3/uL (140-400) 290 x10^3/uL (140-400) Neutrophils (%) (Auto) 66 % (31-73) 68 % (31-73) Lymphocytes (%) (Auto) 27 % (24-48) 26 % (24-48) Monocytes (%) (Auto) 4 % (0-9) 4 % (0-9) Eosinophils (%) (Auto) 3 % (0-3) 3 % (0-3) Basophils (%) (Auto) 1 % (0-3) 1 % (0-3) Neutrophils # (Auto) 7.8 x10^3uL (1.8-7.7) 7.8 x10^3uL (1.8-7.7) Lymphocytes # (Auto) 3.2 x10^3/uL (1.0-4.8) 2.9 x10^3/uL (1.0-4.8) Monocytes # (Auto) 0.5 x10^3/uL (0.0-1.1) 0.4 x10^3/uL (0.0-1.1) Eosinophils # (Auto) 0.3 x10^3/uL (0.0-0.7) 0.3 x10^3/uL (0.0-0.7) Basophils # (Auto) 0.1 x10^3/uL (0.0-0.2) 0.1 x10^3/uL (0.0-0.2) Prothrombin Time 12.9 SEC (11.7-14.0) Prothromb Time International Ratio 1.0 (0.8-1.1) Activated Partial Thromboplast Time 30 SEC (24-38) Sodium Level 139 mmol/L (136-145) 138 mmol/L (136-145) Potassium Level 4.6 mmol/L (3.5-5.1) 4.6 mmol/L (3.5-5.1) Chloride Level 103 mmol/L (98-107) 101 mmol/L (98-107) Carbon Dioxide Level 32 mmol/L (21-32) 31 mmol/L (21-32) Anion Gap 4 (6-14) 6 (6-14) Blood Urea Nitrogen 13 mg/dL (7-20) 11 mg/dL (7-20) Creatinine 0.7 mg/dL (0.6-1.0) 0.5 mg/dL (0.6-1.0) Estimated GFR (Cockcroft-Gault) 86.9 128.1 BUN/Creatinine Ratio 19 (6-20) Glucose Level 87 mg/dL (70-99) 116 mg/dL (70-99) Calcium Level 9.9 mg/dL (8.5-10.1) 9.6 mg/dL (8.5-10.1) Magnesium Level 2.0 mg/dL (1.8-2.4) Total Bilirubin 0.6 mg/dL (0.2-1.0) Aspartate Amino Transf (AST/SGOT) 29 U/L (15-37) Alanine Aminotransferase (ALT/SGPT) 43 U/L (14-59) Alkaline Phosphatase 88 U/L (46-116) Troponin I Quantitative < 0.017 ng/mL (0.000-0.055) < 0.017 ng/mL (0.000-0.055) < 0.017 ng/mL (0.000-0.055) GY-Mpt-Y-Type Natriuretic Peptide 86 pg/mL (0-124) Total Protein 9.1 g/dL (6.4-8.2) Albumin 4.2 g/dL (3.4-5.0) Albumin/Globulin Ratio 0.9 (1.0-1.7) Lipase 219 U/L (73-393) Ethyl Alcohol Level < 10 mg/dL (0-10) Urine Collection Type Unknown Urine Color Yellow Urine Clarity Clear Urine pH 6.0 Urine Specific Luke 1.010 Urine Protein Negative mg/dL (NEG-TRACE) Urine Glucose (UA) Negative mg/dL (NEG) Urine Ketones (Stick) Negative mg/dL (NEG) Urine Blood Negative (NEG) Urine Nitrite Negative (NEG) Urine Bilirubin Negative (NEG) Urine Urobilinogen Dipstick 0.2 mg/dL (0.2 mg/dL) Urine Leukocyte Esterase Negative (NEG) Urine RBC 0 /HPF (0-2) Urine WBC Rare /HPF (0-4) Urine Squamous Epithelial Cells Mod /LPF Urine Bacteria Moderate /HPF (0-FEW) Urine Mucus Slight /LPF Urine Opiates Screen Pos (NEG) Urine Methadone Screen Neg (NEG) Urine Barbiturates Neg (NEG) Urine Phencyclidine Screen Neg (NEG) Urine Amphetamine/Methamphetamine Neg (NEG) Urine Benzodiazepines Screen Neg (NEG) Urine Cocaine Screen Neg (NEG) Urine Cannabinoids Screen Neg (NEG) Urine Ethyl Alcohol Neg (NEG) Medications Current Medications Aspirin (Ecotrin) 325 mg 1X ONCE PO Last administered on 04/06/17 15:02; Start 04/06/17 at 14:45; Stop 04/06/17 at 14:57; Status DC Nitroglycerin (Nitrostat) 0.4 mg PRN Q5MIN PRN SL CHEST PAIN Last administered on 04/06/17 15:15; Start 04/06/17 at 14:45 Fentanyl Citrate (Fentanyl 2ml Vial) 75 mcg 1X ONCE IV Last administered on 15:37; Start 04/06/17 at 15:15; Stop 04/06/17 at 15:28; Status DC Ondansetron HCl (Zofran) 4 mg PRN Q8HRS PRN IV NAUSEA/VOMITING; Start 04/06/17 at 16:15; Stop 04/07/17 at 08:31; Status DC Fentanyl Citrate (Fentanyl 2ml Vial) 50 mcg PRN Q2HR PRN IV PAIN Last administered on 04/07/17 11:21; Start 04/06/17 at 16:15; Stop 04/07/17 at 16:14 Nicotine (Nicoderm Cq 21mg) 1 patch PRN DAILY PRN TD SMOKING CESSATION Last administered on 04/06/17 20:04; Start 04/06/17 at 19:45 Alprazolam (Xanax) 0.5 mg PRN Q6HRS PRN PO ANXIETY / AGITATION; Start 04/06/17 at 20:00 Clonazepam (KlonoPIN) 1 mg TID PRN PRN PO ANXIETY / AGITATION Last administered on 04/06/17 21:04; Start 04/06/17 at 20:00 Acetaminophen/ Hydrocodone Bitart (Lortab 7.5/325) 1 tab TID PRN PRN PO PAIN Last administered on 04/07/17 05:16; Start 04/06/17 at 20:00 Non-Formulary Medication 1 puff PRN Q6HRS PRN INH SHORTNESS OF BREATH; Start 04/06/17 at 20:00; Status UNV Benzonatate (Tessalon Perle) 200 mg QHS PO Last administered on 04/06/17 20:58 ; Start 04/06/17 at 21:00 Gabapentin (Neurontin) 300 mg DAILY PO Last administered on 04/07/17 08:36; Start 04/07/17 at 09:00 Gabapentin (Neurontin) 1,200 mg QHS PO Last administered on 04/06/17 20:59; Start 04/06/17 at 21:00 Paroxetine HCl (Paxil) 30 mg QHS PO Last administered on 04/06/17 20:59; Start 04/06/17 at 21:00 Albuterol Sulfate (Ventolin Neb Soln) 2.5 mg PRN Q6HRS PRN NEB SHORTNESS OF BREATH Last administered on 04/07/17 07:53; Start 04/06/17 at 20:00 Amlodipine Besylate (Norvasc) 5 mg DAILY PO Last administered on 04/07/17 08: 36; Start 04/07/17 at 09:00; Stop 04/07/17 at 09:38; Status DC Amlodipine Besylate (Norvasc) 5 mg 1X ONCE PO Last administered on 04/06/17 23:47; Start 04/06/17 at 23:45; Stop 04/06/17 at 23:46; Status DC Labetalol HCl (Normodyne) 20 mg PRN Q6HRS PRN IVP HYPERTENSION, SEE COMMENTS Last administered on 04/07/17 05:16; Start 04/07/17 at 04:15 Ondansetron HCl (Zofran) 4 mg PRN Q6HRS PRN IV NAUSEA/VOMITING Last administered on 04/07/17 08:47; Start 04/07/17 at 08:45; Stop 04/08/17 at 08:44 Acetaminophen (Tylenol) 500 mg PRN Q6HRS PRN PO MILD PAIN / TEMP Last administered on 04/07/17 08:38; Start 04/07/17 at 08:30 Hydrochlorothiazide (Hydrodiuril) 25 mg DAILY PO Last administered on 11:12; Start 04/07/17 at 10:00 Losartan Potassium (Cozaar) 75 mg DAILY PO Last administered on 04/07/17 11:12 ; Start 04/07/17 at 10:00 Aspirin (Ecotrin) 81 mg DAILYWBKFT PO Last administered on 04/07/17 11:11; Start 04/07/17 at 10:00 Regadenoson (Lexiscan) 0.4 mg 1X ONCE IV Last administered on 04/07/17 10:12 ; Start 04/07/17 at 09:45; Stop 04/07/17 at 09:46; Status DC Influenza Virus Vaccine Quadrival (Fluarix Quad 8999-7899 Syringe) 0.5 ml ONCE ONCE VAX IM ; Start 04/07/17 at 11:30; Stop 04/07/17 at 11:31 Active Scripts Active Reported Alprazolam 0.5 Mg Tablet 0.5 Mg PO PRN Q6HRS PRN Proair Hfa Inhaler (Albuterol Sulfate) 8.5 Gm Hfa.aer.ad 1 Puff INH PRN Q6HRS PRN Paroxetine Hcl 30 Mg Tablet 30 Mg PO QHS Benzonatate 200 Mg Capsule 200 Mg PO QHS Hydrocodone-Apap 7.5-325 (Hydrocodone Bit/Acetaminophen) 1 Each Tablet 1 Tab PO TID PRN PRN Metformin Hcl 500 Mg Tablet 500 Mg PO QID Gabapentin 400 Mg Capsule 1,200 Mg PO QHS Gabapentin 300 Mg Capsule 300 Mg PO DAILY Clonazepam 1 Mg Tablet 1 Mg PO TID PRN PRN Vitals/I & O Vital Sign - Last 24 Hours 10/10/1804/06/17 04/06/17 04/06/17 14:30 15:00 15:01 15:08 Temp 98.4 98.4 Pulse 87 86 84 82 Resp 22 18 B/P (MAP) 228/109 (148) 178/94 (122) 206/104 178/94 Pulse Ox 98 95 O2 Delivery Room Air Room Air 04/06/17 04/06/17 04/06/17 04/06/17 15:15 15:30 16:00 16:30 Pulse 87 84 72 70 Resp 18 18 18 B/P (MAP) 176/94 149/86 (107) 154/67 (96) 136/75 (95) Pulse Ox 94 95 94 O2 Delivery Room Air Room Air Room Air 04/06/17 04/06/17 04/06/17 04/06/17 17:00 17:30 18:42 19:15 Temp 98.1 98.6 98.1 98.6 Pulse 78 74 72 76 Resp 20 18 18 18 B/P (MAP) 153/71 (98) 150/77 (101) 189/97 (127) 172/94 (120) Pulse Ox 96 95 97 O2 Delivery Room Air Room Air Room Air Room Air 04/06/17 04/06/17 04/06/17 04/06/17 20:00 20:04 21:10 23:10 Temp 98.4 98.4 Pulse 79 Resp 18 20 18 B/P (MAP) 179/87 (117) Pulse Ox 98 O2 Delivery Room Air Room Air Room Air Room Air 04/06/17 04/07/17 04/07/17 04/07/17 23:47 03:10 05:16 05:16 Temp 98.7 98.7 Pulse 76 76 Resp 18 18 B/P (MAP) 179/87 206/101 (136) 206/101 Pulse Ox 93 O2 Delivery Room Air Room Air 04/07/17 04/07/17 04/07/17 04/07/17 06:07 08:00 08:05 08:36 Pulse 77 B/P (MAP) 151/76 (101) 157/84 Pulse Ox 93 O2 Delivery Room Air Room Air 04/07/17 04/07/17 04/07/17 04/07/17 08:43 11:12 11:21 11:21 Temp 98.6 98.4 98.6 98.4 Pulse 73 82 79 Resp 20 18 21 B/P (MAP) 157/84 (108) 177/95 177/95 (122) Pulse Ox 93 94 O2 Delivery Room Air Room Air Room Air PACHECO MARTINO MD Apr 07, 2017 11:27
[2017-04-07] MEDS ORDERED: FLU VACC QS2017-18 (36MOS+)/PF 0.5 ML SYRINGE. VAX IM ONE (11:30)
[2017-04-07] MEDS ORDERED: DEXTROSE 50% 25 GM / 50ML DISP.SYRIN. IV PRN (11:30)
[2017-04-07] MEDS ORDERED: KETOROLAC 30 MG/ML INJ. IV ONE (11:30)
[2017-04-07] MEDS: INSULIN ASPART 300 UNITS/3 ML INSULN.PEN SQ SCH ×2 (12:53→17:00)
[2017-04-07] MEDS ORDERED: IBUPROFEN 600 MG TABLET. PO PRN (14:00)
[2017-04-07] MEDS: clonazePAM 1 MG TABLET PO PRN ×2 (14:31→20:35)
[2017-04-07] MEDS ORDERED: LIDOCAINE (700MG/PATCH) PATCH. TD PRN (20:00)
[2017-04-07] MEDS: GABAPENTIN 400 MG CAPSULE. PO SCH (20:35)
[2017-04-07] MEDS: PARoxetine 10 MG TABLET PO SCH (20:35)
[2017-04-07] MEDS: NICOTINE 21MG PATCH. TD PRN (20:35)
[2017-04-07] MEDS: BENZONATATE 100 MG CAPSULE. PO SCH (20:35)
[2017-04-08] VITALS (17 sets, daily range): BP systolic 122–180; BP diastolic 72–104
[2017-04-08] MEDS ORDERED: LIDOCAINE 2% 20 ML VIAL. ONE (07:11)
[2017-04-08] MEDS ORDERED: IOHEXOL 300 MG/ML 100ML VIAL. ONE ×2 (07:11→08:54)
[2017-04-08] MEDS ORDERED: NITROGLYCERIN 200 MCG/2 ML SYRINGE FOR CATH/VASC LAB. ONE (07:48)
[2017-04-08] MEDS ORDERED: fentaNYL PF VIAL 100 MCG/2 ML VIAL ONE ×3 (07:48→08:41)
[2017-04-08] MEDS ORDERED: HEPARIN for IV BOLUS 10,000 UNIT/10 ML VIAL. ONE (07:48)
[2017-04-08] MEDS ORDERED: VERAPAMIL 5 MG/2 ML VIAL. ONE (07:48)
[2017-04-08] MEDS ORDERED: MIDAZOLAM HCL/PF 5 MG/5 ML VIAL. ONE (07:48)
[2017-04-08] MEDS: ASPIRIN ENTERIC COATED 81 MG TABLET.DR. PO SCH (08:00)
[2017-04-08] MEDS: INSULIN ASPART 300 UNITS/3 ML INSULN.PEN SQ SCH ×3 (08:00→17:00)
[2017-04-08] MEDS ORDERED: NITROGLYCERIN 200 MCG/2 ML SYRINGE FOR CATH/VASC LAB. IART ONE ×2 (08:30)
[2017-04-08] MEDS ORDERED: IOHEXOL 300 MG/ML 100ML VIAL. IART ONE (08:30)
[2017-04-08] MEDS ORDERED: LIDOCAINE 2% 20 ML VIAL. IJ ONE (08:30)
[2017-04-08] MEDS ORDERED: VERAPAMIL 5 MG/2 ML VIAL. IART ONE (08:30)
[2017-04-08] MEDS ORDERED: MIDAZOLAM HCL/PF 5 MG/5 ML VIAL. IV ONE (08:30)
[2017-04-08] MEDS ORDERED: HEPARIN for IV BOLUS 10,000 UNIT/10 ML VIAL. IART ONE (08:30)
[2017-04-08] MEDS ORDERED: fentaNYL PF VIAL 100 MCG/2 ML VIAL IV ONE (08:30)
[2017-04-08] MEDS ORDERED: HEPARIN for IV BOLUS 10,000 UNIT/10 ML VIAL. IV ONE (08:33)
[2017-04-08] MEDS ORDERED: BIVALIRUDIN 250 MG VIAL. IV ONE ×2 (08:43→08:45)
[2017-04-08] MEDS ORDERED: MIDAZOLAM HCL/PF 2 MG/2 ML VIAL. ONE (08:43)
[2017-04-08] MEDS ORDERED: hydrALAZINE 20 MG/ML VIAL. ONE (08:58)
[2017-04-08] MEDS ORDERED: hydrALAZINE 20 MG/ML VIAL. IVP ONE (09:00)
[2017-04-08] MEDS ORDERED: ASPIRIN 325 MG TABLET ONE (09:08)
[2017-04-08] MEDS ORDERED: CLOPIDOGREL BISULFATE 75 MG TABLET ONE (09:08)
[2017-04-08] MEDS ORDERED: MIDAZOLAM HCL/PF 2 MG/2 ML VIAL. IV ONE (09:15)
[2017-04-08] MEDS ORDERED: CLOPIDOGREL BISULFATE 75 MG TABLET PO ONE (09:15)
[2017-04-08] MEDS ORDERED: ASPIRIN 325 MG TABLET PO ONE (09:15)
[2017-04-08] MEDS ORDERED: AMIODARONE 150 MG in IV DEXTROSE 5% 100 ML IV PRN (09:45)
[2017-04-08] MEDS ORDERED: ATROPINE 0.5 MG/5 ML DISP.SYRIN. IV PRN (09:45)
[2017-04-08] MEDS ORDERED: ACETAMINOPHEN 325 MG TABLET. PO PRN (09:45)
[2017-04-08] MEDS ORDERED: NITROGLYCERIN SUBLINGUAL 0.4 MG BOTTLE OF 25. SL PRN (09:45)
[2017-04-08] MEDS ORDERED: LIDOCAINE 2% 100 MG/5 ML SYRINGE. IV PRN (09:45)
--- NOTE | 2017-04-08 09:53 | CARD ---
APPROVED REPORT Procedure(s) performed: 1. Left heart catheterization, selective coronary angiography via right [place] sradial approach 2. Instant wave free ratio (IFR) of left anterior descending artery 3. Successful PCI/drug eluting stent placement to left anterior descending artery Moderate sedation: 80 min INDICATION The indication(s) include : Unstable angina and positive stress test. PROCEDURE NARRATIVE After explaining the risks, benefits and alternative options, informed consent was obtained from felicitas ent. Patient was brought [facility] the [facility] and her right wrist was prepped and draped in the us ual fashion after confirming a positive modified Meng's test. Arterial access was obtained in the [facility] radial artery and a 6 Pakistani sheath was inserted. Since patient had radial arterial spasm, a 5 Fr ench Espinoza catheter was advanced under fluoroscopy guidance and selective angiography of the left an d right coronary arteries was performed. Left ventriculography was not performed due to radial artery spasm and recent noninvasive assessment of LVEF. Since patient had borderline significant stenosis i nvolving left anterior descending artery, a decision was made to perform physiologic assessment using instant wave free ratio (IFR). The lesion in the mid to distal segment of the left anterior descendi ng artery was crossed with a ActiveTrak Verrata pressurewire and IFR measurement was made that came back significant at 0.84. FINDINGS 1. The left main coronary artery arose from the left sinus of Valsalva, gave rise to the left anteri or descending and left circumflex arteries and did not show any significant stenosis 2. The left anterior descending artery showed 60-70% stenosis involving the mid to distal segment th at was physiologically significant based on IFR measurement of 0.84 3. The left circumflex artery was a large caliber vessel that did not show any significant stenosis 4. The right coronary artery was a dominant vessel arising from the right sinus of Valsalva that did not show any significant stenosis INTERVENTION The left main coronary artery was engaged with a 6 Pakistani XB 3.5 guide catheter and the stenosis in t he mid to distal segment of the left anterior descending artery was crossed with a 0.014 inch BestBoy Keyboard guidewire. This was treated successfully with a 2.5 x 15 mm Xience Alpine drug-eluting stent that was postdilated with a 2.75 x 12 mm NC trek noncompliant balloon. Follow-up angiography showed resolution of the stenosis to 0% with ROSARIO-3 distal flow. Patient tolerated the procedure well. Hemos tasis was achieved using TR band. There were no immediate complications. Conclusion 1. Single-vessel coronary artery disease involving the left anterior descending artery that was phys iologically significant based on IFR measurement 2. Successful PCI/drug eluting stent placement to the left anterior descending artery Recommendations 1. Aspirin 325 mg daily 2. Plavix 75 mg daily for preferably one year 3. Cardiovascular risk factor modification
[2017-04-08] MEDS: ASPIRIN ENTERIC COATED 325 MG TABLET.DR. PO SCH (10:00)
[2017-04-08] MEDS ORDERED: CLOPIDOGREL BISULFATE 75 MG TABLET PO SCH (10:00)
[2017-04-08] MEDS: fentaNYL PF VIAL 100 MCG/2 ML VIAL IV PRN ×3 (10:06→18:02)
[2017-04-08] MEDS: clonazePAM 1 MG TABLET PO PRN (10:08)
[2017-04-08] MEDS: HYDROcodone/APAP 7.5/325MG 1 TAB TABLET PO PRN ×2 (10:09→18:02)
[2017-04-08] MEDS: hydroCHLOROthiazide 25 MG TABLET PO SCH (10:09)
[2017-04-08] MEDS: GABAPENTIN 300 MG CAPSULE. PO SCH ×2 (10:09→20:50)
[2017-04-08] MEDS: LOSARTAN POTASSIUM 50 MG TABLET. PO SCH (10:10)
[2017-04-08] MEDS: IV 1/2 NORMAL SALINE 1,000 ML IV SCH ×2 (11:00→20:51)
--- NOTE | 2017-04-08 12:05 | PDOC ---
PROGRESS NOTES Chief Complaint Chief Complaint 1. CP s/p [facility] CAD 1 stent 04/08/17 - needs [id number] and statin 2. HTN, dyslipidemia, fibromyalgia - chronic stable 3. Obesity BMI 42 4. DM 2 on OHA 5. Headaches 6. ALEE on CPAP History of Present Illness History of Present Illness Headaches still SLightly sleepy from meds post anesthesia from [facility] today [facility] results noted, 1 stent VS ok LAbs ok PLAn: Trial of fioricet, claims did not like imitrex in past Also on narcs at home and here If headaches become still a major issue, can see for neuro opinion over the weekend STATIN and [id number] to home per cards (positive [facility] findings) Vitals Vitals Vital Signs Date Time Temp Pulse Resp B/P (MAP) Pulse Ox O2 Delivery O2 Flow Rate FiO2 04/08/17 11:45 Room Air 04/08/17 11:00 97.7 79 16 146/83 (104) 91 97.7 Physical Exam General: Alert, Oriented X3, Cooperative, No acute distress Heart: Regular rate, Normal S1, Normal S2, Other (2/6 systolic murmur to LLS border) Abdomen: Soft, No tenderness Skin: No breakdown, Other (allergic dermatitis to bilateral forearm) Labs LABS Laboratory Tests Test 04/07/17 16:47 04/07/17 20:44 Glucose (Fingerstick) 142 mg/dL (70-99) 176 mg/dL (70-99) Review of Systems Review of Systems headaches Assessment and Plan Assessmemt and Plan Problems Medical Problems: (1) Chest pain at rest Status: Acute (2) Hypertensive urgency Status: Acute Problems: Comment Review of Relevant I have reviewed the following items scott (where applicable) has been applied. Labs Laboratory Tests Test 04/06/17 14:35 04/06/17 15:00 04/06/17 21:50 04/07/17 05:02 White Blood Count 11.9 x10^3/uL (4.0-11.0) Red Blood Count 5.20 x10^6/uL (3.50-5.40) Hemoglobin 15.4 g/dL (12.0-15.5) Hematocrit 45.4 % (36.0-47.0) Mean Corpuscular Volume 87 fL (79-100) Mean Corpuscular Hemoglobin 30 pg (25-35) Mean Corpuscular Hemoglobin Concent 34 g/dL (31-37) Red Cell Distribution Width 14.1 % (11.5-14.5) Platelet Count 292 x10^3/uL (140-400) Neutrophils (%) (Auto) 66 % (31-73) Lymphocytes (%) (Auto) 27 % (24-48) Monocytes (%) (Auto) 4 % (0-9) Eosinophils (%) (Auto) 3 % (0-3) Basophils (%) (Auto) 1 % (0-3) Neutrophils # (Auto) 7.8 x10^3uL (1.8-7.7) Lymphocytes # (Auto) 3.2 x10^3/uL (1.0-4.8) Monocytes # (Auto) 0.5 x10^3/uL (0.0-1.1) Eosinophils # (Auto) 0.3 x10^3/uL (0.0-0.7) Basophils # (Auto) 0.1 x10^3/uL (0.0-0.2) Prothrombin Time 12.9 SEC (11.7-14.0) Prothromb Time International Ratio 1.0 (0.8-1.1) Activated Partial Thromboplast Time 30 SEC (24-38) Sodium Level 139 mmol/L (136-145) Potassium Level 4.6 mmol/L (3.5-5.1) Chloride Level 103 mmol/L (98-107) Carbon Dioxide Level 32 mmol/L (21-32) Anion Gap 4 (6-14) Blood Urea Nitrogen 13 mg/dL (7-20) Creatinine 0.7 mg/dL (0.6-1.0) Estimated GFR (Cockcroft-Gault) 86.9 BUN/Creatinine Ratio 19 (6-20) Glucose Level 87 mg/dL (70-99) Calcium Level 9.9 mg/dL (8.5-10.1) Magnesium Level 2.0 mg/dL (1.8-2.4) Total Bilirubin 0.6 mg/dL (0.2-1.0) Aspartate Amino Transf (AST/SGOT) 29 U/L (15-37) Alanine Aminotransferase (ALT/SGPT) 43 U/L (14-59) Alkaline Phosphatase 88 U/L (46-116) Troponin I Quantitative < 0.017 ng/mL (0.000-0.055) < 0.017 ng/mL (0.000-0.055) MD-Kev-T-Type Natriuretic Peptide 86 pg/mL (0-124) Total Protein 9.1 g/dL (6.4-8.2) Albumin 4.2 g/dL (3.4-5.0) Albumin/Globulin Ratio 0.9 (1.0-1.7) Lipase 219 U/L (73-393) Ethyl Alcohol Level < 10 mg/dL (0-10) Urine Collection Type Unknown Urine Color Yellow Urine Clarity Clear Urine pH 6.0 Urine Specific [place] 1.010 Urine Protein Negative mg/dL (NEG-TRACE) Urine Glucose (UA) Negative mg/dL (NEG) Urine Ketones (Stick) Negative mg/dL (NEG) Urine Blood Negative (NEG) Urine Nitrite Negative (NEG) Urine Bilirubin Negative (NEG) Urine Urobilinogen Dipstick 0.2 mg/dL (0.2 mg/dL) Urine Leukocyte Esterase Negative (NEG) Urine RBC 0 /HPF (0-2) Urine WBC Rare /HPF (0-4) Urine Squamous Epithelial Cells Mod /LPF Urine Bacteria Moderate /HPF (0-FEW) Urine Mucus Slight /LPF Urine Opiates Screen Pos (NEG) Urine Methadone Screen Neg (NEG) Urine Barbiturates Neg (NEG) Urine Phencyclidine Screen Neg (NEG) Urine Amphetamine/Methamphetamine Neg (NEG) Urine Benzodiazepines Screen Neg (NEG) Urine Cocaine Screen Neg (NEG) Urine Cannabinoids Screen Neg (NEG) Urine Ethyl Alcohol Neg (NEG) Hemoglobin A1c 6.0 % (4.8-5.6) Test 04/07/17 05:20 04/07/17 11:47 04/07/17 16:47 04/07/17 20:44 White Blood Count 11.5 x10^3/uL (4.0-11.0) Red Blood Count 5.11 x10^6/uL (3.50-5.40) Hemoglobin 14.8 g/dL (12.0-15.5) Hematocrit 44.6 % (36.0-47.0) Mean Corpuscular Volume 87 fL (79-100) Mean Corpuscular Hemoglobin 29 pg (25-35) Mean Corpuscular Hemoglobin Concent 33 g/dL (31-37) Red Cell Distribution Width 14.1 % (11.5-14.5) Platelet Count 290 x10^3/uL (140-400) Neutrophils (%) (Auto) 68 % (31-73) Lymphocytes (%) (Auto) 26 % (24-48) Monocytes (%) (Auto) 4 % (0-9) Eosinophils (%) (Auto) 3 % (0-3) Basophils (%) (Auto) 1 % (0-3) Neutrophils # (Auto) 7.8 x10^3uL (1.8-7.7) Lymphocytes # (Auto) 2.9 x10^3/uL (1.0-4.8) Monocytes # (Auto) 0.4 x10^3/uL (0.0-1.1) Eosinophils # (Auto) 0.3 x10^3/uL (0.0-0.7) Basophils # (Auto) 0.1 x10^3/uL (0.0-0.2) Sodium Level 138 mmol/L (136-145) Potassium Level 4.6 mmol/L (3.5-5.1) Chloride Level 101 mmol/L (98-107) Carbon Dioxide Level 31 mmol/L (21-32) Anion Gap 6 (6-14) Blood Urea Nitrogen 11 mg/dL (7-20) Creatinine 0.5 mg/dL (0.6-1.0) Estimated GFR (Cockcroft-Gault) 128.1 Glucose Level 116 mg/dL (70-99) Calcium Level 9.6 mg/dL (8.5-10.1) Troponin I Quantitative < 0.017 ng/mL (0.000-0.055) Glucose (Fingerstick) 162 mg/dL (70-99) 142 mg/dL (70-99) 176 mg/dL (70-99) Laboratory Tests Test 04/07/17 16:47 04/07/17 20:44 Glucose (Fingerstick) 142 mg/dL (70-99) 176 mg/dL (70-99) Microbiology 04/06/17 Urine Culture - Final, Complete 04/06/17 Urine Culture Result 1 (ALEX) - Final, Complete Medications Current Medications Aspirin (Ecotrin) 325 mg 1X ONCE PO Last administered on 04/06/17t 15:02; Start 04/06/17 at 14:45; Stop 04/06/17 at 14:57; Status DC Nitroglycerin (Nitrostat) 0.4 mg PRN Q5MIN PRN SL CHEST PAIN Last administered on 04/06/17 15:15; Start 04/06/17 at 14:45; Stop 04/08/17 at 09:50; Status DC Fentanyl Citrate (Fentanyl 2ml Vial) 75 mcg 1X ONCE IV Last administered on 15:37; Start 04/06/17 at 15:15; Stop 04/06/17 at 15:28; Status DC Ondansetron HCl (Zofran) 4 mg PRN Q8HRS PRN IV NAUSEA/VOMITING; Start 04/06/17 at 16:15; Stop 04/07/17 at 08:31; Status DC Fentanyl Citrate (Fentanyl 2ml Vial) 50 mcg PRN Q2HR PRN IV PAIN Last administered on 04/07/17 11:21; Start 04/06/17 at 16:15; Stop 04/07/17 at 16:14 ; Status DC Nicotine (Nicoderm Cq 21mg) 1 patch PRN DAILY PRN TD SMOKING CESSATION Last administered on 04/07/17 20:35; Start 04/06/17 at 19:45 Alprazolam (Xanax) 0.5 mg PRN Q6HRS PRN PO ANXIETY / AGITATION; Start 04/06/17 at 20:00 Clonazepam (KlonoPIN) 1 mg TID PRN PRN PO ANXIETY / AGITATION Last administered on 04/08/17 10:08; Start 04/06/17 at 20:00 Acetaminophen/ Hydrocodone Bitart (Lortab 7.5/325) 1 tab TID PRN PRN PO PAIN Last administered on 04/08/17 10:09; Start 04/06/17 at 20:00 Non-Formulary Medication 1 puff PRN Q6HRS PRN INH SHORTNESS OF BREATH; Start 04/06/17 at 20:00; Status UNV Benzonatate (Tessalon Perle) 200 mg QHS PO Last administered on 04/07/17 20:35 ; Start 04/06/17 at 21:00 Gabapentin (Neurontin) 300 mg DAILY PO Last administered on 04/08/17 10:09; Start 04/07/17 at 09:00 Gabapentin (Neurontin) 1,200 mg QHS PO Last administered on 04/07/17 20:35; Start 04/06/17 at 21:00 Paroxetine HCl (Paxil) 30 mg QHS PO Last administered on 04/07/17 20:35; Start 04/06/17 at 21:00 Albuterol Sulfate (Ventolin Neb Soln) 2.5 mg PRN Q6HRS PRN NEB SHORTNESS OF BREATH Last administered on 04/07/17 07:53; Start 04/06/17 at 20:00 Amlodipine Besylate (Norvasc) 5 mg DAILY PO Last administered on 04/07/17 08: 36; Start 04/07/17 at 09:00; Stop 04/07/17 at 09:38; Status DC Amlodipine Besylate (Norvasc) 5 mg 1X ONCE PO Last administered on 04/06/17 23:47; Start 04/06/17 at 23:45; Stop 04/06/17 at 23:46; Status DC Labetalol HCl (Normodyne) 20 mg PRN Q6HRS PRN IVP HYPERTENSION, SEE COMMENTS Last administered on 04/07/17 05:16; Start 04/07/17 at 04:15 Ondansetron HCl (Zofran) 4 mg PRN Q6HRS PRN IV NAUSEA/VOMITING Last administered on 04/07/17 08:47; Start 04/07/17 at 08:45; Stop 04/08/17 at 08:44 ; Status DC Acetaminophen (Tylenol) 500 mg PRN Q6HRS PRN PO MILD PAIN / TEMP Last administered on 04/07/17 08:38; Start 04/07/17 at 08:30; Stop 04/08/17 at 09:50 ; Status DC Hydrochlorothiazide (Hydrodiuril) 25 mg DAILY PO Last administered on 10:09; Start 04/07/17 at 10:00 Losartan Potassium (Cozaar) 75 mg DAILY PO Last administered on 04/08/17 10:10 ; Start 04/07/17 at 10:00 Aspirin (Ecotrin) 81 mg DAILYWBKFT PO Last administered on 04/07/17 11:11; Start 04/07/17 at 10:00 Regadenoson (Lexiscan) 0.4 mg 1X ONCE IV Last administered on 04/07/17 10:12 ; Start 04/07/17 at 09:45; Stop 04/07/17 at 09:46; Status DC Influenza Virus Vaccine Quadrival (Fluarix Quad [id number] Syringe) 0.5 ml ONCE ONCE VAX IM ; Start 04/07/17 at 11:30; Stop 04/07/17 at 11:31; Status DC Ibuprofen (Motrin) 600 mg PRN Q6HRS PRN PO INFLAMMATION; Start 04/07/17 at 14: 00 Ketorolac Tromethamine (Toradol) 30 mg 1X ONCE IV Last administered on 14:30; Start 04/07/17 at 11:30; Stop 04/07/17 at 11:31; Status DC Insulin Aspart (NovoLOG) 0-9 UNITS TIDWMEALS SQ Last administered on 04/07/17 12:53; Start 04/07/17 at 12:00 Dextrose (Dextrose 50%-Water Syringe) 12.5 gm PRN Q15MIN PRN IV SEE COMMENTS; Start 04/07/17 at 11:30 Lidocaine (Lidoderm) 1 patch PRN DAILY PRN TD PAIN Last administered on 20:36; Start 04/07/17 at 20:00 Iohexol (Omnipaque 300 Mg/ml) 100 ml STK-MED ONCE .ROUTE ; Start 04/08/17 at 07: 11; Stop 04/08/17 at 07:12; Status DC Lidocaine HCl 20 ml STK-MED ONCE .ROUTE ; Start 04/08/17 at 07:11; Stop at 07:12; Status DC Heparin Sodium/ Sodium Chloride 1,000 ml @ As Directed STK-MED ONCE .ROUTE ; Start 04/08/17 at 07:12; Stop 04/08/17 at 07:13; Status DC Fentanyl Citrate (Fentanyl 2ml Vial) 100 mcg STK-MED ONCE .ROUTE ; Start at 07:48; Stop 04/08/17 at 07:49; Status DC Midazolam HCl (Versed) 5 mg STK-MED ONCE .ROUTE ; Start 04/08/17 at 07:48; Stop 04/08/17 at 07:49; Status DC Heparin Sodium (Porcine) (Heparin Sodium) 10,000 unit STK-MED ONCE .ROUTE ; Start 04/08/17 at 07:48; Stop 04/08/17 at 07:49; Status DC Verapamil HCl (Verapamil) 5 mg STK-MED ONCE .ROUTE ; Start 04/08/17 at 07:48; Stop 04/08/17 at 07:49; Status DC Nitroglycerin (Nitroglycerin) 200 mcg STK-MED ONCE .ROUTE ; Start 04/08/17 at 07 :48; Stop 04/08/17 at 07:49; Status DC Fentanyl Citrate (Fentanyl 2ml Vial) 100 mcg STK-MED ONCE .ROUTE ; Start at 08:20; Stop 04/08/17 at 08:21; Status DC Nitroglycerin (Nitroglycerin) 200 mcg 1X ONCE IART Last administered on 09:21; Start 04/08/17 at 08:30; Stop 04/08/17 at 08:35; Status DC Verapamil HCl (Verapamil) 2.5 mg 1X ONCE IART Last administered on 04/08/17 09:27; Start 04/08/17 at 08:30; Stop 04/08/17 at 08:35; Status DC Heparin Sodium (Porcine) (Heparin Sodium) 2,500 unit 1X ONCE IART Last administered on 04/08/17 09:27; Start 04/08/17 at 08:30; Stop 04/08/17 at 08:35 ; Status DC Heparin Sodium/ Sodium Chloride 1,000 unit 1X ONCE IART Last administered on 04/08/17 09:21; Start 04/08/17 at 08:30; Stop 04/08/17 at 08:35; Status DC Heparin Sodium/ Sodium Chloride 1,000 unit 1X ONCE IART Last administered on 04/08/17 09:21; Start 04/08/17 at 08:30; Stop 04/08/17 at 08:35; Status DC Midazolam HCl (Versed) 5 mg 1X ONCE IV Last administered on 04/08/17 09:23; Start 04/08/17 at 08:30; Stop 04/08/17 at 08:35; Status DC Fentanyl Citrate (Fentanyl 2ml Vial) 100 mcg 1X ONCE IV Last administered on 04/08/17 09:24; Start 04/08/17 at 08:30; Stop 04/08/17 at 08:35; Status DC Iohexol (Omnipaque 300 Mg/ml) 100 ml 1X ONCE IART Last administered on 09:21; Start 04/08/17 at 08:30; Stop 04/08/17 at 08:35; Status DC Lidocaine HCl 20 ml 1X ONCE IJ Last administered on 04/08/17 09:20; Start at 08:30; Stop 04/08/17 at 08:35; Status DC Nitroglycerin (Nitroglycerin) 200 mcg 1X ONCE IART Last administered on 09:21; Start 04/08/17 at 08:30; Stop 04/08/17 at 08:35; Status DC Fentanyl Citrate (Fentanyl 2ml Vial) 100 mcg STK-MED ONCE .ROUTE ; Start at 08:41; Stop 04/08/17 at 08:42; Status DC Midazolam HCl (Versed) 2 mg STK-MED ONCE .ROUTE ; Start 04/08/17 at 08:43; Stop 04/08/17 at 08:44; Status DC Bivalirudin (Angiomax) 250 mg STK-MED ONCE IV ; Start 04/08/17 at 08:43; Stop 04/08/17 at 08:44; Status DC Bivalirudin (Angiomax) 250 mg 1X ONCE IV Last administered on 04/08/17 09:24 ; Start 04/08/17 at 08:45; Stop 04/08/17 at 08:53; Status DC Heparin Sodium (Porcine) (Heparin Sodium) 5,000 unit 1X ONCE IV Last administered on 04/08/17 09:28; Start 04/08/17 at 08:33; Stop 04/08/17 at 08:53 ; Status DC Iohexol (Omnipaque 300 Mg/ml) 100 ml STK-MED ONCE .ROUTE ; Start 04/08/17 at 08: 54; Stop 04/08/17 at 08:55; Status DC Hydralazine HCl (Apresoline) 20 mg STK-MED ONCE .ROUTE ; Start 04/08/17 at 08:58 ; Stop 04/08/17 at 08:59; Status DC Midazolam HCl (Versed) 2 mg 1X ONCE IV Last administered on 04/08/17 09:25; Start 04/08/17 at 09:15; Stop 04/08/17 at 09:16; Status DC Clopidogrel Bisulfate (Plavix) 600 mg 1X ONCE PO Last administered on 09:23; Start 04/08/17 at 09:15; Stop 04/08/17 at 09:16; Status DC Aspirin (Mariam Aspirin) 325 mg 1X ONCE PO Last administered on 04/08/17 09:15 ; Start 04/08/17 at 09:15; Stop 04/08/17 at 09:16; Status DC Clopidogrel Bisulfate (Plavix) 75 mg STK-MED ONCE .ROUTE ; Start 04/08/17 at 09: 08; Stop 04/08/17 at 09:09; Status DC Aspirin (Mariam Aspirin) 325 mg STK-MED ONCE .ROUTE ; Start 04/08/17 at 09:08; Stop 04/08/17 at 09:09; Status DC Sodium Chloride 1,000 ml @ 100 mls/hr Q10H IV ; Start 04/08/17 at 11:00 Aspirin (Ecotrin) 325 mg DAILYWBKFT PO ; Start 04/08/17 at 10:00 Clopidogrel Bisulfate (Plavix) 75 mg DAILYWBKFT PO ; Start 04/08/17 at 10:00; Status Cancel Atorvastatin Calcium (Lipitor) 40 mg QHS PO ; Start 04/08/17 at 21:00 Acetaminophen (Tylenol) 650 mg PRN Q6HRS PRN PO MILD PAIN / TEMP; Start at 09:45 Fentanyl Citrate (Fentanyl 2ml Vial) 50 mcg PRN Q1HR PRN IV MODERATE OR SEVERE PAIN Last administered on 04/08/17 11:45; Start 04/08/17 at 09:45 Nitroglycerin (Nitrostat) 0.4 mg PRN Q5MIN PRN SL CHEST PAIN; Start 04/08/17 at 09:45 Amiodarone HCl 150 mg/Dextrose 103 ml @ 10 mls/min 1X PRN PRN IV FOR VENTRICULAR TACHYCARDIA; Start 04/08/17 at 09:45 Lidocaine HCl (Lidocaine HCl 2% Abboject) 100 mg 1X PRN PRN IV FOR VENTRICULAR TACHYCARDIA; Start 04/08/17 at 09:45 Atropine Sulfate 0.5 mg PRN 1X PRN IV BRADYCARDIA; Start 04/08/17 at 09:45 Hydralazine HCl (Apresoline) 10 mg 1X ONCE IVP Last administered on 04/08/17t 09:00; Start 04/08/17 at 09:00; Stop 04/08/17 at 09:50; Status DC Clopidogrel Bisulfate (Plavix) 75 mg DAILYWBKFT PO ; Start 04/09/17 at 08:00 Active Scripts Active Reported Alprazolam 0.5 Mg Tablet 0.5 Mg PO PRN Q6HRS PRN Proair Hfa Inhaler (Albuterol Sulfate) 8.5 Gm Hfa.aer.ad 1 Puff INH PRN Q6HRS PRN Paroxetine Hcl 30 Mg Tablet 30 Mg PO QHS Benzonatate 200 Mg Capsule 200 Mg PO QHS Hydrocodone-Apap 7.5-325 (Hydrocodone Bit/Acetaminophen) 1 Each Tablet 1 Tab PO TID PRN PRN Metformin Hcl 500 Mg Tablet 500 Mg PO QID Gabapentin 400 Mg Capsule 1,200 Mg PO QHS Gabapentin 300 Mg Capsule 300 Mg PO DAILY Clonazepam 1 Mg Tablet 1 Mg PO TID PRN PRN Vitals/I & O Vital Sign - Last 24 Hours 04/07/17 04/07/17 04/07/17 04/07/17 15:19 18:26 19:15 19:53 Temp 98.2 98.4 98.2 98.4 Pulse 75 75 Resp 19 16 18 B/P (MAP) 135/70 (91) 170/77 (108) Pulse Ox 95 94 O2 Delivery Room Air Room Air Room Air Room Air 04/07/17 04/08/17 04/08/17 04/08/17 23:15 03:15 07:00 08:00 Temp 97.9 98.1 97.9 98.1 Pulse 69 74 74 Resp 18 17 B/P (MAP) 162/87 (112) 153/91 (111) 173/104 (127) Pulse Ox 93 93 O2 Delivery Room Air BiPAP/CPAP Room Air 04/08/17 04/08/17 04/08/17 04/08/17 09:00 09:24 09:27 09:35 Pulse 90 92 92 Resp 23 30 B/P (MAP) 197/112 180/91 Pulse Ox 94 95 O2 Delivery Room Air Room Air 04/08/17 04/08/17 04/08/17 04/08/17 10:06 10:09 10:10 10:57 Pulse 78 B/P (MAP) 170/89 O2 Delivery Room Air Room Air Room Air 04/08/17 04/08/17 04/08/17 10:57 11:00 11:45 Temp 97.7 97.7 Pulse 79 Resp 16 B/P (MAP) 146/83 (104) Pulse Ox 91 O2 Delivery Room Air Room Air Room Air PACHECO MARTINO MD Apr 08, 2017 12:05
[2017-04-08] MEDS ORDERED: BUTALB/APAP/CAFEIN 50/325/40MG TABLET. PO PRN (12:15)
--- NOTE | 2017-04-08 15:40 | RAD ---
APPROVED REPORT Test Type: Pharmacological Stress Nurse/Tech: Deedee Villa R.N. Test Indications: c/p Cardiac History: asthma,htn,smoker Medications: See Electronic Medical Record Medical History: See Electronic Medical Record Resting ECG: SR Resting Heart Rate: 74 bpm Resting Blood Pressure: 150/82mmHg Pretest Chest Pain: Atypical angina Nurse/Tech Notes S1S2, lungs CTA, states she has sharp pain in the back of both shoulders scale 4/10, also c/o bad h/a , scale 8/10. Consent: The procedure was explained to the patient in lay terms. Informed consent was witnessed. Ata robbins was entered into [employer]. History and Stress Test performed by [facility]ASS[facility] [employer] [employer]. Details Pharmacologic stress testing was performed using 0.4mg per 5ml of regadenoson given intravenously ove r 7-10 seconds. Stress Symptoms states that shoulder increased to 7/10 , h/a stayed the same. she did start having nausea post lexisc an but this mostly resolved by the end of recovery period. the shoulder pain did return to baseline b y the end of recovery period POST EXERCISE Reason for Termination: Reached target heart rate Max HR: 96 bpm Max Blood Pressure: 159/83mmHg Blood Pressure response to exercise: Normal blood pressure response during stress. Heart Rate response to exercise: wnl Chest Pain: Yes. see above note Arrhythmia: No. ST Change: No. INTERPRETATION Stress EKG Conclusion: The resting EKG shows a sinus rhythm with mild nonspecific ST-T wave changes. The stress EKG shows no significant changes from baseline. No EKG evidence of stressed induced ischemia. Imaging Protocol IMAGE PROTOCOL: Stress Tc-99m/rest Tc-99m 2 days Rest: Stress: Viability: Radiopharm.Tc99m Sestamibi [id number] Duration 12min. Img Date 04/07/2017 Inj-Img [id number]. Stress Admin Site: IV - Left HandAdministrator: HAL Serna, ARRT (R)(N) STRESS DATA End Diast. Vol.73.0mlAv. Heart Rate78.0bpm End Syst. Vol.23.0mlCO Index BSA4.0L/min Myocardial Bgtj142.0gEject. Iqsmrgmi22.0% Stress Rates Pk. Fill Rate3.80EDV/secLVtime Pk. Fill 101.74msec Pk. Empty Rate5.14ESV/secLVtime Pk. Udflo404.17msec 07/06 Pk. Fill2.62EDV/sec Stress Scores Regional WT0.00Summed WT2.00 Regional WM0.00Summed WM5.00 LV Perfusion The stress scans show an anterior wall defect. LV Perf. Quant 17 Seg. SSS7.00 Stress Defect Extent (% LAD)22.50Rest Defect Extent (% LAD)Rev. Defect Extent (% LAD)0.00 Stress Defect Extent (% LCX) 31.30Rest Defect Extent (% LCX)Rev. Defect Extent (% LCX)0.00 Stress Defect Extent (% RCA)0.00Rest Defect Extent (% RCA)Rev. Defect Extent (% RCA)0.00 Stress Defect Extent (% PAPO)14.80Rest Defect Extent (% PAPO)Rev. Defect Extent (% PAPO)0.00 Conclusion 1. Chest pain with infusion. 2. No EKG evidence of stressed induced ischemia. 3. Anterior wall defect on stress scanning. 4. Moderate risk Lexiscan nuclear stress test.
[2017-04-08] MEDS: BENZONATATE 100 MG CAPSULE. PO SCH (20:50)
[2017-04-08] MEDS: PARoxetine 10 MG TABLET PO SCH (20:50)
[2017-04-08] MEDS: GABAPENTIN 400 MG CAPSULE. PO SCH (20:55)
[2017-04-08] MEDS ORDERED: ATORVASTATIN CALCIUM 20 MG TABLET PO SCH (21:00)
[2017-04-09] MEDS: clonazePAM 1 MG TABLET PO PRN (00:19)
[2017-04-09] MEDS: HYDROcodone/APAP 7.5/325MG 1 TAB TABLET PO PRN ×2 (00:20→08:14)
[2017-04-09 03:05] VITALS: BP 165/77
[2017-04-09 07:00] VITALS: BP 169/75
[2017-04-09] MEDS: ASPIRIN ENTERIC COATED 325 MG TABLET.DR. PO SCH (08:00)
[2017-04-09] MEDS: INSULIN ASPART 300 UNITS/3 ML INSULN.PEN SQ SCH (08:00)
[2017-04-09] MEDS ORDERED: CLOPIDOGREL BISULFATE 75 MG TABLET PO SCH (08:00)
[2017-04-09 08:12] VITALS: BP 165/77
[2017-04-09] MEDS: LOSARTAN POTASSIUM 50 MG TABLET. PO SCH (08:12)
[2017-04-09] MEDS: hydroCHLOROthiazide 25 MG TABLET PO SCH (08:13)
[2017-04-09] MEDS: ASPIRIN ENTERIC COATED 81 MG TABLET.DR. PO SCH (08:14)
[2017-04-09] MEDS ORDERED: ATOR20TA58 PO (10:47)
[2017-04-09] MEDS ORDERED: LOSA50TA2 PO (10:47)
[2017-04-09] MEDS ORDERED: ASPI325T11 PO (10:47)
[2017-04-09] MEDS ORDERED: HYDR25TA9 PO (10:47)
[2017-04-09] MEDS ORDERED: CLOP75TA PO (10:47)
[2017-04-09] MEDS ORDERED: ASPI-612 PO (10:58)
--- NOTE | 2017-04-09 13:51 | PDOC3 ---
Discharge Summary [facility] Date of Admission: Apr 06, 2017 Discharge Date: Apr 09, 2017 Admitting Diagnosis 1. CP s/p [facility] CAD 1 stent 04/08/17 2. HTN, dyslipidemia, fibromyalgia - chronic stable 3. Obesity BMI 42 4. DM 2 on OHA 5. Headaches 6. ALEE on CPAP Problems: Final Diagnosis CONSULTS card Brief Hospital Course Ms. Khalil is a 57 old F, htn, came for chest pain, CE neg. eventually got cath and 1 stent at LAD. now no chest pain, dc with asa, plavix. dc time 35min General: Alert, Oriented X3, Cooperative, No acute distress Heart: Regular rate, Normal S1, Normal S2, Other (2/6 systolic murmur to LLS border) Abdomen: Soft, No tenderness Skin: No breakdown, Other (allergic dermatitis to bilateral forearm) Problems: Disposition home CONDITION AT DISCHARGE: Improved Diet cardiac Scheduled Atorvastatin Calcium (Atorvastatin Calcium), 40 MG PO QHS Benzonatate (Benzonatate), 200 MG PO QHS, (Reported) Clopidogrel Bisulfate (Clopidogrel), 75 MG PO DAILYWBKFT Gabapentin (Gabapentin), 300 MG PO DAILY, (Reported) Gabapentin (Gabapentin), 1,200 MG PO QHS, (Reported) Hydrochlorothiazide (Hydrochlorothiazide Tablet ), 25 MG PO DAILY Losartan Potassium (Cozaar), 75 MG PO DAILY Metformin Hcl (Metformin Hcl), 500 MG PO QID, (Reported) Paroxetine Hcl (Paroxetine Hcl), 30 MG PO QHS, (Reported) Scheduled PRN Albuterol Sulfate (Proair Hfa Inhaler), 1 PUFF INH PRN Q6HRS PRN for SHORTNESS OF BREATH, (Reported) Alprazolam (Alprazolam), 0.5 MG PO PRN Q6HRS PRN for ANXIETY / AGITATION, ( Reported) Clonazepam (Clonazepam), 1 MG PO TID PRN PRN for ANXIETY / AGITATION, (Reported) Hydrocodone Bit/Acetaminophen (Hydrocodone-Apap 7.5-325 ), 1 TAB PO TID PRN PRN for PAIN, (Reported) Miscellaneous Medications Aspirin (Aspirin Ec), 81 MG PO, (Reported) Follow Up card in 2 weeks REINA OWENS MD Apr 09, 2017 13:51
== END 2017-04-09 11:30 | disposition home or self-care (01) | DRG 247 ==
LOC: ER 14:23 → ED HOLD 15:32 → 2 SOUTH 18:25
PROVIDERS: ADMIT Internal Medicine; ATTEND Internal Medicine
PROC: 4A033BC Measurement of Arterial Pressure, Coronary, Percutaneous Approach (ICD-10-PCS; 2017-04-06)
PROC: 5A09357 Assistance with Respiratory Ventilation, Less than 24 Consecutive Hours, Continuous Positive Airway Pressure (ICD-10-PCS; 2017-04-06)
PROC: B2111ZZ Fluoroscopy of Multiple Coronary Arteries using Low Osmolar Contrast (ICD-10-PCS; principal; 2017-04-08)
PROC: 027034Z Dilation of Coronary Artery, One Artery with Drug-eluting Intraluminal Device, Percutaneous Approach (ICD-10-PCS; 2017-04-08)
DX: I25.110 Atherosclerotic heart disease of native coronary artery with unstable angina pectoris (principal); E11.42 Type 2 diabetes mellitus with diabetic polyneuropathy; Z68.41 Body mass index [BMI] 40.0-44.9, adult; I16.0 Hypertensive urgency; R07.9 Chest pain, unspecified; I10 Essential (primary) hypertension; E66.01 Morbid (severe) obesity due to excess calories; E78.00 Pure hypercholesterolemia, unspecified; E78.5 Hyperlipidemia, unspecified; F17.210 Nicotine dependence, cigarettes, uncomplicated; G47.33 Obstructive sleep apnea (adult) (pediatric); J45.909 Unspecified asthma, uncomplicated; K21.9 Gastro-esophageal reflux disease without esophagitis; M79.7 Fibromyalgia; Z82.49 Family history of ischemic heart disease and other diseases of the circulatory system; Z90.710 Acquired absence of both cervix and uterus; F32.9 Major depressive disorder, single episode, unspecified; F41.9 Anxiety disorder, unspecified; Z90.49 Acquired absence of other specified parts of digestive tract; Z88.5 Allergy status to narcotic agent
CPT/HCPCS: 36415; 71010; 78452; 80048; 80053; 80307; 81001; 82962; 83036; 83690; 83735; 83880; 84484; 85025; 85610; 85730; 87086; 90686; 92928; 93005; 93017; 93454; 93571; 94250; 94640; 94660; 94760; 95811; 96374; 96375; 99152; 99153; A9500; C1725; C1769; C1874; C1887; C1892; G0480; J0360; J0583; J1644; J1815; J1885; J2250; J2405; J2785; J3010; J3490; J7613; Q9967; 99285-25; G0479; J2001

== ENCOUNTER → 2018-07-06 | Outpatient (CLI) | payer MEDICARE ==
[~2018-07-06] MED LIST: ALBU2.5V8 INH; ALPR0.5T6 PO; ASPI-612 PO; ASPI325T11 PO; ATOR20TA58 PO; BENZ200C47 PO; CLON1TAB11 PO; CLOP75TA PO; GABA-689 PO; GABA300C18 PO; HYDR-2145 PO; HYDR-2765 PO; LIDOCAINE 1% Multi-Dose 20 ML VIAL. INJ ONE; LIDOCAINE 2%/EPI 1:100,000 20 ML VIAL. IJ ONE; LOSA-73 PO; METF500T16 PO; PARO30TA3 PO
--- NOTE | 2018-07-07 12:31 | RAD ---
CLINICAL INDICATION: Abnormal mammogram and ultrasound with suspicious mass for which biopsy was recommended PRE-PROCEDURAL CONSULTATION: Details of the procedure and possible limitations and complications were discussed with the patient. After addressing her questions and concerns, written informed consent was obtained. A time out was then taken to verify patient's name and date of as well as site and laterality. PROCEDURE: The mass at the 11 o'clock position within the left breast was targeted under ultrasound. The skin of the left breast was cleansed and prepped in the typical sterile fashion. 7 cc of 1% lidocaine was used for local anesthesia. A small skin incision was then made to permit passage of a 14 gauge spring activated biopsy device. Under direct sonographic guidance, 3 core specimens were obtained. An S shaped clip was then deployed at the biopsy site under direct sonographic guidance, although the biopsy clip was slightly displaced upon deployment. Hemostasis was achieved. The patient tolerated the procedure well with no immediate complications. Post-procedural digital mammographic imaging of the left breast demonstrate the S shaped clip in the medial, slightly inferior left breast. IMPRESSION: Successful ultrasound guided core needle biopsy of a mass at the 11 o'clock position within the left breast. Pathology is pending.
--- NOTE | 2018-07-07 13:10 | PATHOLOGY ---
[facility] Accession Number: [id number] . 01 Material submitted: . LEFT BREAST CORE . 01 Clinical history: . Left breast mass . 02 Diagnosis: Breast biopsy (left breast core biopsy): - Fragment of predominantly fat with fat necrosis and hemorrhage. No breast ducts and lobules identified. See comment. (SHA:jose; 07/07/2018) QMS/07/07/2018 . 02 Comment: Suggest clinical correlation and followup as clinically indicated. . This case is also reviewed by Dr. Sherri Muniz. . ([facility]:jose; 07/07/2018) . 02 Electronically signed: . Geovani Martinez MD, Pathologist NPI- [id number] . 01 Gross description: . Received in formalin labeled "Jennifer Khalil, left breast," are multiple needle cores of yellow-cox fibrofatty tissue measuring 0.9 x 0.6 x 0.2 cm in aggregate dimensions. The tissue is submitted in its entirety in cassette A1 through A3. The cold ischemic time is 5 minutes. The total formalin fixation time is 10 hours and 20 minutes. (TSD; 07/06/2018) TOB/TOB . 02 Pathologist provided ICD-10: N63.20, N64.1 . 02 CPT . 651732 Specimen Comment: A courtesy copy of this report has been sent to Specimen Comment: [phone], . Specimen Comment: Report sent to / DR MARTINEZ Specimen Comment: A duplicate report has been generated due to demographic updates. Performed at: [address], [place], [place] [id number] MD Alexys Goins MD Phone: [phone] Performed at: [address] [id number] MD Drew Ellis MD Phone: [phone]
== END | disposition home or self-care (01) ==
LOC: US 10:03
PROVIDERS: ATTEND General Practice
DX: N64.1 Fat necrosis of breast (principal); Z88.5 Allergy status to narcotic agent; I11.9 Hypertensive heart disease without heart failure; Z79.01 Long term (current) use of anticoagulants; F17.200 Nicotine dependence, unspecified, uncomplicated; M79.7 Fibromyalgia; M19.90 Unspecified osteoarthritis, unspecified site; Z95.5 Presence of coronary angioplasty implant and graft
CPT/HCPCS: 19083; 77065; 88305; C1713; 19081; 76942

== ENCOUNTER → 2019-06-18 | Outpatient (CLI) | payer MEDICARE ==
[~2019-06-18] MED LIST changes: -CLON1TAB11 PO; +CLONAZEPAM1 MG PO; -LIDOCAINE 1% Multi-Dose 20 ML VIAL. INJ ONE; -LIDOCAINE 2%/EPI 1:100,000 20 ML VIAL. IJ ONE
--- NOTE | 2019-06-19 08:41 | KCIC ---
STUDY: MRI pelvis without contrast INDICATION: Lumbar/coccygeal pain. COMPARISON: None. TECHNIQUE: Multiplanar MR imaging of the pelvis performed without the use of intravenous contrast. FINDINGS: Bones: Marrow signal throughout the sacrum and coccyx is within normal limits. Degenerative changes at the lower lumbar spine as detailed on the same day dedicated MRI of this region. Mild SI joint arthrosis without findings of sacroiliitis. The hips are not well evaluated and only partially included in the [id number]. Enthesophyte formation seen at both ischial tuberosities. Musculotendinous: Muscular bulk is symmetric. Miscellaneous: No inflammatory changes or fluid collections seen along the dorsal aspect of the sacrum/coccyx. Unremarkable presacral soft tissues. IMPRESSION: No osseous or soft tissue abnormality along the coccyx or sacrum is identified to correspond with the patient's symptoms. Electronically signed by: MARY BROWN MD (06/19/2019 8:38 AM) [id number]
--- NOTE | 2019-06-19 08:43 | KCIC ---
MRI Brain without contrast History: Chronic headaches, dizziness, decreased peripheral vision Technique: Multiplanar, multisequential noncontrast MR imaging was performed of the brain. Comparison: None Findings: There is no evidence of recent infarct or cytotoxic edema. The ventricles, sulci, and cisterns are within normal limits in size and configuration. There is no significant midline shift, intraaxial mass effect, or focal abnormal extra-axial fluid collection. There are foci of signal change with volume loss of the bilateral ledesma radiata, right thalamus, and bilateral basal ganglia. There is other mild T2 and FLAIR hypertense signal abnormality of the supratentorial periventricular white matter bilaterally, also some involvement of the deep white matter. Some foci have a perpendicular orientation relative to the lateral ventricles. There are foci of old microhemorrhage of the left cerebellum and left occipital lobe. There is preservation of the major intracranial flow-voids at the skull base. The mastoid air cells are aerated. The cerebellar tonsils are normal in location. There are some small cystic foci of the pineal gland, may be septations septation or adjacent small cysts, cumulative dimension about 0.8 cm transverse by 0.6 cm cc by 0.4 cm AP. There is [id number]-[id number] left ethmoid air cell and mild left sphenoid sinus mucosal thickening. Frontal sinus is not significantly pneumatized. There is preserved marrow signal of the clivus. Impression: 1. There is no evidence of recent infarct or a real mass effect. There are foci of old microhemorrhage of the left occipital lobe and left cerebellum. 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 There is other overall mild T2 and FLAIR hyperintense abnormality of the supratentorial periventricular and deep white matter bilaterally, some foci which have a perpendicular orientation relative to lateral ventricles. While findings could be due to chronic microvascular ischemic disease especially if risk factors such as hypertension or diabetes and given the foci of volume loss, sequela of an inflammatory demyelinating disease is possible especially given distribution. Postcontrast imaging may be beneficial to assess for enhancement. 2. There are some small cystic foci of the pineal gland, statistically more likely small cysts. Electronically signed by: Carlos Mustafa MD (06/19/2019 8:40 AM) [id number]
--- NOTE | 2019-06-19 08:49 | KCIC ---
MRI Lumbar Spine without contrast History: Lumbar pain, radicular leg pain, chronic low back pain Technique: Multiplanar, multi sequential noncontrast MR imaging was performed of the lumbar spine. Comparison: None Findings: There is some motion degradation. Lumbar vertebral body stature and AP alignment are maintained. There is mild degenerative disc disease at L5-S1 and mild disc desiccation L2-3 through L4-5. There is trace L5-S1 endplate edema likely reactive/degenerative in etiology. Conus terminates at the mid aspect of L2. L1-2, L2-3: These levels were not included on axial images. Neural foramina and spinal canal are adequate. There is a negligible disc osteophyte complex at L2-3. L3-L4: There is very minimal disc osteophyte complex. There is mild buckling of the ligamentum flavum. Neural foramina and the spinal canal are adequate. L4-L5: There is [id number] buckling of the ligamentum flavum and mild facet hypertrophic change. There is minimal bulge. There is minimal narrowing of the far lateral recesses greater on the left. Neural foramina are overall adequate. L5-S1: There is bulge/broad protrusion more eccentric to left lateral recess up to about 4 mm AP. There is contact of the descending left S1 nerve root in the left lateral recess, mild narrowing of the far left lateral recess. There is mild facet hypertrophic change greater on the left. There is mild narrowing of the left neural foramen, right neural foramen overall adequate. Impression: 1. There is mild degenerative disc disease at L5-S1, mild disc desiccation of more superior levels. There is no significant lumbar spinal stenosis, mild narrowing of the far lateral recesses greater on the left at L4-5 and also of the left lateral recess at L5-S1, bulge/protrusion at L5-S1 contacting the descending left S1 nerve root in the left lateral recess. Electronically signed by: Carlos Mustafa MD (06/19/2019 8:46 AM) [email or web address]
== END | disposition home or self-care (01) ==
LOC: KCIC MRI 16:05
DX: M51.16 Intervertebral disc disorders with radiculopathy, lumbar region (principal); M53.3 Sacrococcygeal disorders, not elsewhere classified; M48.07 Spinal stenosis, lumbosacral region; M25.78 Osteophyte, vertebrae; F17.200 Nicotine dependence, unspecified, uncomplicated
CPT/HCPCS: 70551; 72148; 72195

== ENCOUNTER → 2020-03-21 | Outpatient (CLI) | payer MEDICARE ==
[~2020-03-21] MED LIST changes: -ASPI-612 PO; +ASPI-886 PO
== END | disposition home or self-care (01) ==
LOC: LAB 13:11
PROVIDERS: ATTEND Surgery
DX: Z01.812 Encounter for preprocedural laboratory examination (principal); Z20.828 Contact with and (suspected) exposure to other viral communicable diseases; Z88.6 Allergy status to analgesic agent; Z88.8 Allergy status to other drugs, medicaments and biological substances
CPT/HCPCS: U0003-CS

== ENCOUNTER → 2020-03-25 | Day surgery (SDC) | payer MEDICARE ==
[~2020-03-25] MED LIST changes: +IV RINGERS,LACTATED 1000ML 1,000 ML IV SCH; +LIDOCAINE 2% PF 5 ML VIAL. ONE; +ONDANSETRON PF 4 MG/2 ML VIAL. IV PRN; +PROCHLORPERAZINE 10 MG/2 ML VIAL. IV PRN; +PROPOFOL 10 MG/ML (20ML) VIAL. IV ONE; +fentaNYL PF VIAL 100 MCG/2 ML VIAL IV PRN
[2020-03-25 14:20] VITALS: BP 138/78
== END | disposition home or self-care (01) ==
LOC: ENDOS 12:53
PROVIDERS: ATTEND Surgery
DX: Z12.11 Encounter for screening for malignant neoplasm of colon (principal); K64.8 Other hemorrhoids; I11.0 Hypertensive heart disease with heart failure; I50.9 Heart failure, unspecified; Z88.8 Allergy status to other drugs, medicaments and biological substances; Z79.899 Other long term (current) drug therapy; Z80.0 Family history of malignant neoplasm of digestive organs
CPT/HCPCS: G0105; J2704; 45378